=== PATIENT | male | born 1950 | race Caucasian/White ===

== ENCOUNTER → 2023-09-02 16:40 | Outpatient (REF) | payer MEDICARE, SELFPAY ==
[2023-09-02 20:39] LABS: Urine Albumin 3+ (Neg - Trace); Urine Bilirubin 1+ (Negative); Urine Character Very Cloudy (Clear); Urine Color Red; Urine Glucose Negative (Negative); Urine Ketone Trace (Negative); Urine Leukocyte 1+ (Negative); Urine Nitrite Positive (Negative); Urine Occult Blood 4+ (Negative); Urine Urobilinogen 1+ (Neg - 1+); Urine pH 6.5 (5.0-9.0)
[2023-09-02 20:46] LABS: Urine Squamous Cell 0-2 /LPF (Few)
[2023-09-02 20:47] LABS: Urine Red Blood Cell >100 /HPF (0-2); Urine Red Cell Cast >15 /LPF
== END ==
LOC: REG 16:40
PROVIDERS: ATTENDING PHYSICIAN Surgery; FAMILY PHYSICIAN Family Medicine
DX: N39.0 Urinary tract infection, site not specified (principal); N20.0 Calculus of kidney
CPT/HCPCS: 74018; 81003; 81015; 87086

== ENCOUNTER 2023-12-31 23:12 | Emergency (ER) | payer MEDICARE, SELFPAY ==
[2023-12-31 23:16] VITALS: BP 148/83
[2023-12-31 23:18] VITALS: BP 148/83
[2024-01-01 00:29] LABS: % Basophils 0.7 % (0-2); % Eosinophils 1.2 % (0-6); % Immature Granulocytes 2.7 % (0-0.5); % Lymphocytes 15.9 % (20.5-51.1); % Monocytes 8.1 % (1.7-9.3); % Neutrophils 71.4 % (42.2-75.2); Absolute Basophils 0.1 10^3/uL (0-0.2); Absolute Eosinophils 0.1 10^3/uL (0-0.7); Absolute Immature Granulocytes 0.2 10^3/uL (0-0.05); Absolute Lymphocytes 1.3 10^3/uL (1.2-3.4); Absolute Monocytes 0.7 10^3/uL (0.1-0.6); Hematocrit 47.9 % (39.0-52.0); Hemoglobin 15.5 g/dL (13.0-18.0); Mean Corp Hgb Conc. 32.4 g/dL (33.0-37.0); Mean Corpuscular Hgb 31.3 pg (27.0-31.0); Mean Corpuscular Volume 96.8 fL (80.0-94.0); Mean Platelet Volume 10.7 fL (7.4-10.4); Nucleated Red Blood Cells % 0 % (-); Platelet Count 184 10^3/uL (130-400); Red Blood Cell Count 4.95 10^6/uL (4.70-6.10); Red Cell Dist. Width 14.5 % (11.5-14.5); White Blood Cell Count 8.4 10^3/uL (4.8-10.8)
[2024-01-01 00:37] LABS: ALT (SGPT) 18 U/L (0-50); AST (SGOT) 33 U/L (17-59); Albumin 4.1 g/dl (3.5-5.0); Alkaline Phosphatase 78 U/L (38-126); Blood Urea Nitrogen 19 mg/dl (9-20); Calcium 9.3 mg/dl (8.4-10.2); Carbon Dioxide 29 mmol/L (22-30); Chloride 102 mmol/L (98-107); Estimated Creatinine Clearance 100 ml/min; Glucose 101 mg/dl (70-99); Potassium 4.2 mmol/L (3.5-5.1); Sodium 140 mmol/L (135-145); Total Protein 7.3 g/dl (6.3-8.2); eGFR > 60.00
--- NOTE | 2024-01-01 00:58 | ED.GENMED ---
History of Present Illness
General
Chief Complaint: Fall
Source: patient and spouse
Exam Limitations: none
Time Seen by Provider: 01/01/24 00:19
Travel History
Have you had any contact with someone who has COVID-19?: No
Do you have any symptoms of coronavirus? Fever > 100 degrees, chills, cough, shortness of breath, sore throat, loss of taste or smell, muscle aches, or headache?: No
History of Present Illness
History of Present Illness:
This is a 73 year old male that comes in by ambulance with c/o fall. states that he got up form the sofa and was going around the coffee table. States that there are children's chairs at the end of the table and he must have caught his foot on
one of the chairs. States that he was sitting on the floor when she got there. States that he was unable to get up. States that he hit the left sided of his neck and head and also his left lower ribs. States that his 5th finger is also sore but
patient able to move the finger. Denies any LOC. Denies any fever, chills, chest pain, SOB, abd pain, nausea, vomiting, diarrhea, headache, dizziness, urinary burning.
Past History
Past History
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 ),
CHF, CVA (Expressive aphasia), GERD, HTN, Hypothyroidism, Other ( Petty's esophagus , back and neck pain chronic, DVT, renal calculus, ), Other (Vasovagal syncope, DVT, osteoarthritis with chronic pain syndrome/narcotic dependent, BPH) and Other
(Patient Denies gastric erosion and GI bleeding)
ED Past Surgical History: Cardiac (AV sequential pacemaker after ablation for atrial fibrillation ), Orthopedic and Other (Cataracts, Deviated septum, )
Social History
Tobacco: Non-smoker
Alcohol: None
Drug: None
Personal:
Living: with family
Employment: Retired
Family History
Family History: CAD; Negative Diabetes
Review of Systems
Review of Systems
All Other Systems: ROS reviewed and negative except as documented in HPI and ROS
Constitutional: Reports no symptoms; Denies fever or chills
EENT: Reports no symptoms
Respiratory: Reports no symptoms; Denies cough or trouble breathing
Cardiac: Reports no symptoms; Denies chest pain
ABD/GI: Reports no symptoms; Denies abdominal pain, nausea, vomiting or diarrhea
: Reports no symptoms; Denies dysuria, frequency or urgency
Musculoskeletal: Reports neck pain and other (Left sided rib pain)
Skin: Reports no symptoms
Neurological: Reports no symptoms; Denies dizzy or headache
Psychiatric: Reports no symptoms
Phy Exam
General Physical Exam
General Presentation: no apparent distress
General age: appears stated age
General Skin: warm and dry
General Habitus: elderly
General Mental: alert
General Hydration: appears well hydrated
ENT Exam
ENT Exam: TM's normal, pharynx normal and neck supple
Eye Exam
Eye Exam: EOMI
Cardiovascular Exam
Cardiovascular Exam: pacemaker
Pulmonary Exam
Pulmonary Exam: lungs clear, no respiratory distress, no rales, chest non tender, no crackles, no rhonchi, no wheezing and no cough
Gastrointestinal Exam
Gastrointestinal Exam: normal bowel sounds, non tender, soft, no organomegaly, no pulsatile mass and non distended
Musculoskeletal Exam
Musculoskeletal Exam: full ROM and edema (Chronic lower leg edema +1 pitting, Negative for cervical neck tenderness or spinal tenderness with palpation. )
Skin Exam
Skin Exam: normal color, no rash, no petechia and other (Contusion of the left fifth finger)
Psychiatric Exam
Psychiatric Exam: normal mood/affect
Course
Orders/Labs/Results
Orders:
Orders
01/01/24 00:09
CMP [Comprehensive Metabolic Panel] Urgent
Complete Blood Count/With Diff Urgent
01/01/24 00:46
CT Cervical Spine W/o Iv Contr Urgent
Comment:
Reason For Exam: Fall, left sided neck pain
CT Head W/o Iv Contrast Urgent
Comment:
Reason For Exam: fall, On Blood thinners hitting head
01/01/24 00:47
Diazepam [Valium] 2 mg PO NOW STA
Ketorolac [Toradol] 30 mg IV NOW STA
01/01/24 00:57
Prothrombin Time Urgent
01/01/24 01:00
Ribs, Left 3 View W/PA Chest CR [CR Ribs-left 3 Vw W/pa Chest] Urgent
Comment:
Reason For Exam: Fall, left sided rib pain
Abnormal Lab Results
01/01/24 01/01/24
00:09 00:57
MCV 96.8 H fL
(80.0-94.0)
MCH 31.3 H pg
(27.0-31.0)
MCHC 32.4 L g/dL
(33.0-37.0)
MPV 10.7 H fL
(7.4-10.4)
Abs Immat Gran (auto) 0.2 H 10^3/uL
(0-0.05)
Absolute Monos (auto) 0.7 H 10^3/uL
(0.1-0.6)
Immature Gran % 2.7 H %
(0-0.5)
Lymphocytes % 15.9 L %
(20.5-51.1)
PT 36.1 H Sec
(11.4-14.6)
Glucose 101 H mg/dl
(70-99)
01/01/24 00:09
01/01/24 00:09
Anemia, PT 36.1 with INR 3.55, glucose nonfasting
Vital Signs
Initial and Last Documented VS:
Initial Vital Signs
BP
148/83
12/31/23 23:16
Last Documented Vital Signs
Temp Pulse Resp BP Pulse Ox
98.3 F 80 19 132/85 98
12/31/23 23:18 01/01/24 00:58 01/01/24 00:58 01/01/24 01:00 01/01/24 00:58
MDM/Problems Addressed
Differential Diagnosis Includes:
Contusion, accidental fall
MDM/Problems Addressed:
This is a 73 year old male that tripped on a child's chair as his foot got caught. State that he fell hitting the left sided of his head and neck. States that he also hit the left rib area.
Will get CT of head and neck and X-ray or Ribs.
Back into see patient. Explained that the CT of the head and neck is negative for any acute process. Chest with ribs appear to be negative for any fracture but this is very heart sometimes to see on the X-ray. Even if there would be a fracture it is
still treated the same. Encouraged patient to take deep breaths. Follow up with the family doctor as needed. Tylenol for any pain. Explained to patient that his INR is to high. Patient checked his INR at home so encouraged patient to check tomorrow
as he may need to hold his Coumadin so his level can come down into the 2-3 range as it should be less then 3.
Chronic conditions affecting care:
NA
Acute Exacerbation and/or Progression of Chronic Illness:
NA
*Radiology
Radiology exam reviewed: preliminary read by ED provider (Chest/ribs- No obvious rib fracture, negtive for Pneumothorax. ), radiology read reviewed (CT head and cervical spine night hawk- Head- no acue hemorrhage, herniation, or hydrocephalus. Left
MCA territory encephalomalacia. No calvarial fracture. The Visualized paranasal sinuses and mastoid air cells are clear. Cervical spine- No acute fracture or traumatic malalignment. No significant ) and all reviewed NAD by ED Provider (CT
cont=prevertebral edema. Multilevel degenerative changes of the cervical spine. If there are persistent neurologic symptoms, consider MRI for further characterization. )
*Pulse Oximetry
Patient hypoxic: no
*EKG
Interpreted by ED Provider?: NA
Rate: EKG- N/A
*Dietitian Chief Interpretation
Rate: normal
Heart Rate: 82
Rhythm: ventricular paced
*Critical Care Note
Total Time (30-74mins, 75-104mins- exclusive of procedures): Not Applicable
ED Attending Note
-
Portions of this chart may have been created with voice recognition software.� Occasional wrong word or��sound alike� substitutions may have occurred due to the inherent limitations of voice recognition software.
Discharge Plan
Departure
Patient Disposition: Home (Routine Discharge)
Date of Disposition: 01/01/24
Time of Disposition: 02:11
Patient with high blood pressure during this ER visit?: Yes
Condition: Good
Covid-19: Not Applicable
Discharge Problem:
Accidental fall, Neck pain, Contusion of rib on left side
Instructions: Contusion (DC), Preventing falls in adults, Neck Pain ED, BLOOD PRESSURE
Prescriptions:
No Action
warfarin 2.5 mg Tablet
2.5 mg PO QPM
amlodipine 2.5 mg Tablet
2.5 mg PO DAILY@1400
furosemide 20 mg Tablet
20 mg PO DAILYPRN PRN (Reason: leg/ankle swelling)
cholecalciferol (vitamin D3) [Vitamin D3] 25 mcg (1,000 unit) Capsule
25 mcg PO DAILY
oxycodone 5 MG tablet
10 mg PO Q5HPRN PRN (Reason: Moderate or severe pain)
acetaminophen [Acetaminophen Extra Strength] 500 mg Tablet
1,000 mg PO Q6HPRN PRN (Reason: pain)
metoprolol succinate 50 mg Tablet Extended Release 24 Hr
50 mg PO BID
polyethylene glycol 3350 [Miralax] 17 gram/dose Powder
4 g PO DAILY PRN (Reason: constipation)
docusate calcium 50 mg Capsule
50 mg PO DAILY PRN (Reason: constipation)
levothyroxine 150 MCG tablet
150 mcg PO DAILY@0700 Qty: 30 0RF
fluticasone propionate 1 SPRAY spray,suspension
1 spray intranasal DAILY Qty: 1 0RF
cyanocobalamin (vitamin B-12) 1,000 MCG tablet
1,000 mcg PO DAILY Qty: 30 0RF
Referrals:
Edis Mays MD [Family Provider] - Call in 1-3 days for appt
Activity Restrictions/Additional Instructions:
As discussed, your CT of the head and neck is negative for any acute process. There is degenerative changes in the neck. Your blood work shows that your INR is elevated to 3.55. Please check your INR tomorrow and if it remans above 3, please hold
your Coumadin for one day. You may use Ice to any area that is sore for the next 24 hours. After this you can use heat or ice which ever makes you feel better. Tylenol 1000mg every 6 hours or any pain. No obvious rib fracures noted. Please remember
to take deep breaths to open up the lower lung packer. Follow up with the family doctor as needed. IF YOU HAVE ANY OTHER CONCERNS PLEASE RETURN TO THE EMERGENCY ROOM
Interventions
Interventions:
*Risk Screen - Suicide Last Done: 12/31/23 23:23
*General Assessment Last Done: 12/31/23 23:23
*Neglect/Abuse Screening Last Done: 12/31/23 23:23
*ED COVID-19 Vaccine History Last Done: 12/31/23 23:23
ED-Musculoskeletal Assessment Last Done: 12/31/23 23:27
ED- Neurological Assessment Last Done: 12/31/23 23:27
ED-Skin Assessment Last Done: 12/31/23 23:27
Discharge Date and Time
Print Language: MACEDONIAN
[2024-01-01 01:00] VITALS: BP 132/85
[2024-01-01] MEDS: TORADOL 30 MG IV (01:00)
[2024-01-01 01:19] LABS: INR 3.55; PT 36.1 Sec (11.4-14.6)
[2024-01-01 02:00] VITALS: BP 121/74
== END 2024-01-01 02:41 | disposition home or self-care (01) ==
LOC: EMR 23:12
PROVIDERS: Clinical Nurse Specialist Family Health; Emergency Medicine; EMERGENCY PHYSICIAN Student in an Organized Health Care Education/Training Program; FAMILY PHYSICIAN Family Medicine
DX: S60.052A Contusion of left little finger without damage to nail, initial encounter (principal); W19.XXXA Unspecified fall, initial encounter; I48.91 Unspecified atrial fibrillation; J45.909 Unspecified asthma, uncomplicated; I25.10 Atherosclerotic heart disease of native coronary artery without angina pectoris; I11.0 Hypertensive heart disease with heart failure; I50.9 Heart failure, unspecified; K21.9 Gastro-esophageal reflux disease without esophagitis; K22.70 Barrett's esophagus without dysplasia; N40.0 Benign prostatic hyperplasia without lower urinary tract symptoms; M54.2 Cervicalgia
CPT/HCPCS: 99284; 96374; 70450; 71101; 72125; 80053; 85025; 85610

== ENCOUNTER → 2024-01-27 09:43 | Outpatient (REF) | payer MEDICARE, SELFPAY | LOC: HWRAD 09:43 | PROVIDERS: ATTENDING PHYSICIAN Family Medicine | DX: I71.40 Abdominal aortic aneurysm, without rupture, unspecified (principal) | CPT/HCPCS: 74174; Q9967 ==

== ENCOUNTER → 2024-03-03 10:35 | Outpatient (REF) | payer MEDICARE, SELFPAY | LOC: RAD 10:35 | PROVIDERS: ATTENDING PHYSICIAN Surgery Vascular Surgery; FAMILY PHYSICIAN Family Medicine | DX: R29.898 Other symptoms and signs involving the musculoskeletal system (principal) | CPT/HCPCS: 93922; 93925 ==

== ENCOUNTER → 2024-08-22 06:21 | Outpatient (REF) | payer MEDICARE, SELFPAY | LOC: RAD 06:21 | PROVIDERS: ATTENDING PHYSICIAN Surgery Vascular Surgery; FAMILY PHYSICIAN Family Medicine | DX: I71.43 Infrarenal abdominal aortic aneurysm, without rupture (principal) | CPT/HCPCS: 76770 ==

== ENCOUNTER → 2024-10-12 11:28 | Outpatient (REF) | payer MEDICARE, SELFPAY ==
[2024-10-12 14:00] LABS: Body Fluid Mononuclear 12.6 %; Body Fluid Polymorphonuclear 87.4 %; Body Fluid WBC 11655 /CUMM
[2024-10-12 14:09] LABS: Body Fluid Second Tech AMA
== END ==
LOC: REG 11:28
PROVIDERS: ATTENDING PHYSICIAN Specialist; FAMILY PHYSICIAN Family Medicine
DX: M25.462 Effusion, left knee (principal)
CPT/HCPCS: 87015; 87070; 87205; 89051; 89060

== ENCOUNTER → 2024-11-01 12:59 | Outpatient (REF) | payer MEDICARE, SELFPAY | LOC: HWRAD 12:59 | PROVIDERS: ATTENDING PHYSICIAN Family Medicine | DX: M17.10 Unilateral primary osteoarthritis, unspecified knee (principal) | CPT/HCPCS: 73564 ==

== ENCOUNTER → 2024-11-04 10:29 | Outpatient (REF) | payer MEDICARE, SELFPAY ==
[2024-11-04 12:27] LABS: INR 1.98; PT 22.6 Sec (11.4-14.6)
== END ==
LOC: HWLAB 10:29
PROVIDERS: ATTENDING PHYSICIAN Internal Medicine Cardiovascular Disease; FAMILY PHYSICIAN Family Medicine
DX: I48.0 Paroxysmal atrial fibrillation (principal); Z79.01 Long term (current) use of anticoagulants
CPT/HCPCS: 36415; 85610

== ENCOUNTER → 2024-11-07 08:29 | Outpatient (REF) | payer MEDICARE, SELFPAY ==
[2024-11-07 12:50] LABS: INR 3.12
== END ==
LOC: HWLAB 08:29
PROVIDERS: ATTENDING PHYSICIAN Internal Medicine Cardiovascular Disease; FAMILY PHYSICIAN Family Medicine
DX: I48.0 Paroxysmal atrial fibrillation (principal); Z79.01 Long term (current) use of anticoagulants
CPT/HCPCS: 36415; 85610

== ENCOUNTER 2024-12-01 07:34 | Outpatient (RCR) | payer MEDICARE, SELFPAY | END 2024-12-01 23:59 | disposition home or self-care (01) | LOC: RPT 07:34 | PROVIDERS: ATTENDING PHYSICIAN Internal Medicine Cardiovascular Disease; FAMILY PHYSICIAN Family Medicine | DX: I89.0 Lymphedema, not elsewhere classified (principal); Z73.6 Limitation of activities due to disability; R26.2 Difficulty in walking, not elsewhere classified; R26.89 Other abnormalities of gait and mobility | CPT/HCPCS: 97163; 97530; 97760; 97763 ==

== ENCOUNTER → 2024-12-30 10:05 | Outpatient (REF) | payer MEDICARE, SELFPAY | LOC: HWRCS 10:05 | PROVIDERS: ATTENDING PHYSICIAN Nurse Practitioner; FAMILY PHYSICIAN Family Medicine | DX: I10 Essential (primary) hypertension (principal); I50.32 Chronic diastolic (congestive) heart failure | CPT/HCPCS: 93306 ==

== ENCOUNTER → 2025-01-27 06:48 | Outpatient (REF) | payer MEDICARE, SELFPAY | LOC: RAD 06:48 | PROVIDERS: ATTENDING PHYSICIAN Family Medicine | DX: I71.40 Abdominal aortic aneurysm, without rupture, unspecified (principal) | CPT/HCPCS: 74174; Q9967 ==

== ENCOUNTER 2025-03-23 08:11 | Emergency (ER) | payer MEDICARE, SELFPAY ==
[2025-03-23] VITALS (10 sets, daily range): BP systolic 137–152; BP diastolic 84–98; BMI 27.7
--- NOTE | 2025-03-23 08:40 | ED.CVA ---
History of Present Illness
<Ruben Burgos PA-C - Last Filed: 03/24/25 19:52>
General
Chief Complaint: CVA/TIA Symptoms
Source: patient
Exam Limitations: none
Time Seen by Provider: 03/23/25 08:27
Onset of Stroke Symptoms
Onset of symptoms known: No
Time pt last seen normal is known: No
History of Present Illness
History of Present Illness:
74-year-old male with history of A-fib, has pacemaker on Coumadin also with history of stroke presents complaining of onset of left arm dysfunction starting today at 745. He was taking a shower and he was having difficulty coordinating motion of
his hand. He denies any significant pain in his chest head or arm. He denies fever or shortness of breath. No speech disturbance per the family. He is chronically hard of hearing. No other complaints at this
Past History
<Ruben Burgos PA-C - Last Filed: 03/24/25 19:52>
Past History
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 ),
CHF, CVA (Expressive aphasia), GERD, HTN, Hypothyroidism, Other ( Petty's esophagus , back and neck pain chronic, DVT, renal calculus, ), Other (Vasovagal syncope, DVT, osteoarthritis with chronic pain syndrome/narcotic dependent, BPH) and Other
(Patient Denies gastric erosion and GI bleeding)
ED Past Surgical History: Cardiac (AV sequential pacemaker after ablation for atrial fibrillation ), Orthopedic and Other (Cataracts, Deviated septum, )
Social History
Tobacco: Non-smoker
Alcohol: None
Drug: None
Personal:
Living: with family
Employment: Retired
Family History
Family History: CAD; Negative Diabetes
Phy Exam
<Ruben Burgos PA-C - Last Filed: 03/24/25 19:52>
Physical Exam
Physical Exam:
General: Well-appearing male no acute respiratory distress
HEENT: Normal cephalic face is symmetric
Heart: Regular rate and rhythm
Lungs: Clear no wheeze
Neurologic exam: Alert and oriented x 3 no dysarthria or aphasia. Subtle ataxia with the left arm with [id number] otherwise good and sensation and strength to the upper and lower extremities. No drift to the lower extremities. No drift to the
left upper extremity
Extremities: No cyanosis
Skin is warm no rash
Course
<Ruben Burgos PA-C - Last Filed: 03/24/25 19:52>
Orders/Labs/Results
Orders:
Orders
03/23/25 08:40
CT Head W/o Iv Contrast Urgent
Comment:
Reason For Exam: left arm dysfunction
Interrogate Pacemaker- Treatment ONCE
03/23/25 08:45
Electrocardiogram (*1) Urgent
Reason for Study: TIA/Stroke
EKG- Treatment ONCE
03/23/25 08:51
Complete Blood Count/With Diff Urgent
Comprehensive Metabolic Panel Urgent
Prothrombin Time Urgent
03/23/25 Lunch
Regular
At Your Request: Full Participation
03/23/25 13:00
CARDIOLOGY CONSULT Urgent
Consulting Provider: Mateo Simon
Was physician already notified: Yes
03/23/25 14:51
Simethicone [Mylicon] 80 mg PO NOW STA
03/23/25 15:13
Acetaminophen [Tylenol] 650 mg PO NOW STA
Abnormal Lab Results
03/23/25
08:51
Abs Immat Gran (auto) 0.1 H 10^3/uL
(0-0.05)
Absolute Lymphs (auto) 0.8 L 10^3/uL
(1.2-3.4)
Immature Gran % 0.8 H %
(0-0.5)
Neutrophils % 77.8 H %
(42.2-75.2)
Lymphocytes % 11.6 L %
(20.5-51.1)
PT 32.3 H Sec
(11.4-14.6)
Glucose 102 H mg/dl
(70-99)
03/23/25 08:51
03/23/25 08:51
Vital Signs
Initial and Last Documented VS:
Initial Vital Signs
Temp Pulse Resp BP Pulse Ox
98.9 F 83 16 145/89 94
03/23/25 08:14 03/23/25 08:14 03/23/25 08:14 03/23/25 08:14 03/23/25 08:14
Last Documented Vital Signs
Temp Pulse Resp BP Pulse Ox
98.9 F 80 16 152/84 99
03/23/25 08:14 03/23/25 17:25 03/23/25 17:25 03/23/25 17:25 03/23/25 17:25
<Parag Alan, DO - Last Filed: 03/23/25 10:14>
Orders/Labs/Results
Orders:
Orders
03/23/25 08:40
CT Head W/o Iv Contrast Urgent
Comment:
Reason For Exam: left arm dysfunction
Interrogate Pacemaker- Treatment ONCE
03/23/25 08:45
Electrocardiogram (*1) Urgent
Reason for Study: TIA/Stroke
EKG- Treatment ONCE
03/23/25 08:51
Complete Blood Count/With Diff Urgent
Comprehensive Metabolic Panel Urgent
Prothrombin Time Urgent
03/23/25 Lunch
Regular
At Your Request: Full Participation
03/23/25 13:00
CARDIOLOGY CONSULT Urgent
Consulting Provider: Mateo Simon
Was physician already notified: Yes
03/23/25 14:51
Simethicone [Mylicon] 80 mg PO NOW STA
03/23/25 15:13
Acetaminophen [Tylenol] 650 mg PO NOW STA
Abnormal Lab Results
03/23/25
08:51
Abs Immat Gran (auto) 0.1 H 10^3/uL
(0-0.05)
Absolute Lymphs (auto) 0.8 L 10^3/uL
(1.2-3.4)
Immature Gran % 0.8 H %
(0-0.5)
Neutrophils % 77.8 H %
(42.2-75.2)
Lymphocytes % 11.6 L %
(20.5-51.1)
PT 32.3 H Sec
(11.4-14.6)
Glucose 102 H mg/dl
(70-99)
03/23/25 08:51
03/23/25 08:51
Vital Signs
Initial and Last Documented VS:
Initial Vital Signs
Temp Pulse Resp BP Pulse Ox
98.9 F 83 16 145/89 94
03/23/25 08:14 03/23/25 08:14 03/23/25 08:14 03/23/25 08:14 03/23/25 08:14
Last Documented Vital Signs
Temp Pulse Resp BP Pulse Ox
98.9 F 80 16 152/84 99
03/23/25 08:14 03/23/25 17:25 03/23/25 17:25 03/23/25 17:25 03/23/25 17:25
Michaellt;Ruben Burgos PA-C - Last Filed: 03/24/25 19:52>
MDM/Problems Addressed
Differential Diagnosis Includes:
Left arm dysfunction onset 1 hour prior to my exam. Question TIA versus stroke versus radiculopathy versus tremor
Patient has a pacemaker, will interrogate. INR pending. Pacemaker apparently is not MRI compatible per the family. Order CT of the head
<Ruben Burgos PA-C - Last Filed: 03/24/25 19:52>
*Pulse Oximetry
SaO2: 96
Oxygen Mode of Delivery: Room air
Patient hypoxic: no
*Critical Care Note
Total Time (30-74mins, 75-104mins- exclusive of procedures): Not Applicable
<Ruben Burgos PA-C - Last Filed: 03/24/25 19:52>
Update Note
Update Note:
EKG shows ventricular paced rhythm with a rate of 85. Received message from radiology regarding patient's plain CAT scan which demonstrates bilateral subdural collections with an acute component noted on the right side. This may explain the
patient's left arm dysfunction. Discussed with emergency room attending as well as neurosurgery from [facility]. Relayed the information to the patient and family
Neurosurgery recommended reversing Coumadin and transfer. Initially patient quite resistant to transfer and reversing Coumadin as he has had a stroke after being off of the Coumadin for couple days in the past. Discussed with cardiology who saw
patient. After multiple [id number] discussions, patient is okay with transfer. We will not reverse the Coumadin at this time until evaluation is performed at [facility].
Left arm dysfunction has improved and feels back to normal per patient
ED Attending Note
<Ruben Burgos PA-C - Last Filed: 03/24/25 19:52>
-
Portions of this chart may have been created with voice recognition software.� Occasional wrong word or��sound alike� substitutions may have occurred due to the inherent limitations of voice recognition software.
<Parag Alan DO - Last Filed: 03/23/25 10:14>
ED Attending Note
Patient seen and examined by attending physician: Yes
I performed the substantive portion of visit, reviewed & personally made and approve the management plan that is documented in note by myself or FUNMI.: Yes
ED Attending Note:
I have seen and evaluated the patient with a [id number] encounter. I have spoken to the advance practicer provider and involved in the medical history, the physical exam, medical decision making.
Evaluation and management service: agree unless noted differently below.
Results interpretation: agree unless noted differently below.
Focused HPI: 74-year-old male presenting for evaluation of left arm weakness. Patient is currently on Coumadin for prior strokes
Physical exam: Sitting bed comfortably. No acute distress
Medical Decision Making:
10 AM I became involved in the patient's care when the CT showed concerns for bilateral subdural collections. Unfortunately, there does appear to be a somewhat acute subdural aspect to the area. At this point, patient is declining any reversal of
his Coumadin since he had developed a stroke in the past. He does understand that this could lead to worsening bleeding and irreversible damage. is also at bedside and understands the concerns as well. Neurosurgery involved and they
initially suggested reversing the Coumadin but wanted an MRI of the brain but patient does not believe it is MRI compatible. Will have cardiology weigh in.
Discharge Plan
Departure
Patient Disposition: [facility]
Date of Disposition: 03/23/25
Time of Disposition: 13:41
Patient with high blood pressure during this ER visit?: No
Discharge Problem:
Subdural hemorrhage
Prescriptions:
No Action
warfarin 2.5 mg Tablet
2.5 mg PO QPM
Patient Comments:
dose varies. currenttly taking 1.75 mg
furosemide 20 mg Tablet
20 mg PO Q48H
cholecalciferol (vitamin D3) [Vitamin D3] 25 mcg (1,000 unit) Capsule
25 mcg PO DAILY
oxycodone 5 MG tablet
10 mg PO Q5HPRN PRN (Reason: Moderate or severe pain)
acetaminophen [Acetaminophen Extra Strength] 500 mg Tablet
1,000 mg PO Q6HPRN PRN (Reason: pain)
metoprolol succinate 50 mg Tablet Extended Release 24 Hr
50 mg PO BID
polyethylene glycol 3350 [Miralax] 17 gram/dose Powder
4 g PO DAILY PRN (Reason: constipation)
docusate calcium 50 mg Capsule
50 mg PO DAILY PRN (Reason: constipation)
morphine 30 mg Capsule
30 mg PO BID
levothyroxine 150 MCG tablet
150 mcg PO DAILY@0700 Qty: 30 0RF
fluticasone propionate 1 SPRAY spray,suspension
1 spray intranasal DAILY Qty: 1 0RF
cyanocobalamin (vitamin B-12) 1,000 MCG tablet
1,000 mcg PO DAILY Qty: 30 0RF
Referrals:
Edis Mays MD [Family Provider, [facility]]
Hospital Transfer
Other hospital: [place]
I certify that the patient requires transfer: Yes
Discussed case with accepting physician: Yes
Reason for transfer: higher level of care and specialties available
Interventions
Interventions:
*Risk Screen - Suicide Last Done: 03/23/25 08:14
*General Assessment Last Done: 03/23/25 08:32
*Neglect/Abuse Screening Last Done: 03/23/25 08:14
*ED- Fall Risk Assessment Last Done: 03/23/25 08:32
*ED COVID-19 Vaccine History Last Done: 03/23/25 08:32
*Nursing Disposition Last Done: 03/23/25 17:34
ED- Pulmonary Assessment Last Done: 03/23/25 08:35
ED- Neurological Assessment Last Done: 03/23/25 15:00
ED- Cardiac Assessment Last Done: 03/23/25 08:34
ED Swallowing Screen Last Done: 03/23/25 11:42
Discharge Date and Time
Discharge Date/Time: 03/23/25 16:40
Print Language: BULGARIAN
[2025-03-23 09:00] LABS: Hematocrit 45.6 % (39.0-52.0); Hemoglobin 15.1 g/dL (13.0-18.0); Mean Corp Hgb Conc. 33.1 g/dL (33.0-37.0); Mean Corpuscular Volume 91.8 fL (80.0-94.0); Nucleated Red Blood Cells % 0 % (-); Platelet Count 182 10^3/uL (130-400); Red Cell Dist. Width 14.5 % (11.5-14.5)
[2025-03-23 09:10] LABS: INR 3.10; PT 32.3 Sec (11.4-14.6)
[2025-03-23 09:22] LABS: ALT (SGPT) 12 U/L (0-50); AST (SGOT) 18 U/L (17-59); Albumin 3.7 g/dl (3.5-5.0); Alkaline Phosphatase 82 U/L (38-126); Blood Urea Nitrogen 11 mg/dl (9-20); Calcium 9.1 mg/dl (8.4-10.2); Carbon Dioxide 28 mmol/L (22-30); Chloride 106 mmol/L (98-107); Estimated Creatinine Clearance 99 ml/min; Glucose 102 mg/dl (70-99); Potassium 3.6 mmol/L (3.5-5.1); Sodium 140 mmol/L (135-145); Total Protein 6.7 g/dl (6.3-8.2); eGFR > 60.00
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
[2025-03-23] MEDS: TYLENOL 650 MG PO (15:17)
[2025-03-23] MEDS: MYLICON 80 MG PO (15:18)
== END 2025-03-23 16:40 | disposition short-term general hospital (02) ==
LOC: EMR 08:11
PROVIDERS: Physician Assistant; CONSULT PHYSICIAN Internal Medicine Cardiovascular Disease; EMERGENCY PHYSICIAN Student in an Organized Health Care Education/Training Program; FAMILY PHYSICIAN Family Medicine
DX: I62.00 Nontraumatic subdural hemorrhage, unspecified (principal); I11.0 Hypertensive heart disease with heart failure; I50.32 Chronic diastolic (congestive) heart failure; E03.9 Hypothyroidism, unspecified; F11.20 Opioid dependence, uncomplicated; G89.4 Chronic pain syndrome; I25.10 Atherosclerotic heart disease of native coronary artery without angina pectoris; I48.21 Permanent atrial fibrillation; J45.909 Unspecified asthma, uncomplicated; Z55.6 Problems related to health literacy; Z79.01 Long term (current) use of anticoagulants; Z79.82 Long term (current) use of aspirin; Z86.73 Personal history of transient ischemic attack (TIA), and cerebral infarction without residual deficits; Z86.718 Personal history of other venous thrombosis and embolism; Z86.79 Personal history of other diseases of the circulatory system
CPT/HCPCS: 99285; 70450; 80053; 85025; 85610; 93005

== ENCOUNTER 2025-04-02 16:20 | Inpatient (IN) | payer MEDICARE, SELFPAY ==
[2025-04-02] VITALS (11 sets, daily range): BP systolic 114–152; BP diastolic 61–99; BMI 28.6; BMI 27.5
--- NOTE | 2025-04-02 08:19 | ED.GENMED ---
History of Present Illness
<Ciro Khan PA-C - Last Filed: 04/02/25 15:08>
General
Chief Complaint: Musculo-Skeletal Complaint
Source: patient, spouse and family
Time Seen by Provider: 04/02/25 08:01
History of Present Illness
History of Present Illness:
74-year-old male with recent past medical history of a subdural hematoma, transferred to [facility] and discharged this past Thursday, permanent A-fib status post pacemaker, CHF, CAD, previous DVT presenting to the emergency department with
family with concern for possible DVT to the right lower extremity after patient started noticing a pulling sensation to the leg late Thursday evening and has continued, family now noting there seems to be some redness to the medial distal thigh with
tenderness to palpation. There was no reported injury to the affected area. Patient had to be removed from his Coumadin due to the intracranial bleed after being on Coumadin for 20 years and as of this time there was no indication patient would be
restarted on the Coumadin. He does not have a Watchman device or IVC filter. He denies any focal weakness or numbness to the extremity. There was no reported fevers. No other concerns at this time.
Past History
<Ciro Khan PA-C - Last Filed: 04/02/25 15:08>
Past History
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 ),
CHF, CVA (Expressive aphasia), GERD, HTN, Hypothyroidism, Other ( Petty's esophagus , back and neck pain chronic, DVT, renal calculus, ), Other (Vasovagal syncope, DVT, osteoarthritis with chronic pain syndrome/narcotic dependent, BPH) and Other
(Patient Denies gastric erosion and GI bleeding)
ED Past Surgical History: Cardiac (AV sequential pacemaker after ablation for atrial fibrillation ), Orthopedic and Other (Cataracts, Deviated septum, )
Social History
Tobacco: Non-smoker
Alcohol: None
Drug: None
Personal:
Living: with family
Employment: Retired
Family History
Family History: CAD; Negative Diabetes
Review of Systems
<Ciro Khan PA-C - Last Filed: 04/02/25 15:08>
Review of Systems
All Other Systems: ROS reviewed and negative except as documented in HPI and ROS
Phy Exam
<Ciro Khan PA-C - Last Filed: 04/02/25 15:08>
Physical Exam
Physical Exam:
GENERAL: Alert , in no apparent distress
HEAD: Normocephalic atraumatic
EYE: conjunctiva clear
NECK: Supple, no significant adenopathy.
ENT: o/p clr, mmm.
CARDIAC: Regular rate and rhythm
LUNGS: Clear breath sounds bilaterally, no acute respiratory distress, no wheezes/rales/rhonchi
NEUROLOGICAL: Alert and oriented
SKIN: Warm and dry, skin intact.
MUSCULOSKELETAL: Venous stasis dermatitis to the bilateral lower extremities with dusky appearance that is baseline to the distal lower legs bilaterally. The right lower extremity medial/distal thigh has a large area of erythema that is hot to the
touch, tender with a suspected palpable cord/induration measuring about 5 to 6 cm. Patient is able to range of motion the extremities out difficulty. Cap refills less than 2 seconds and sensation is grossly intact to light touch.
PSYCH: Normal and appropriate interaction.
Scores
<Ciro Khan PA-C - Last Filed: 04/02/25 15:08>
Heart Failure Risk
Heart Failure Risk Score: Not Applicable
Heart Score for Chest Pain Patients
STEMI patient?: Not applicable
Withdrawal Assessment of Alcohol
Withdrawal Assessment Completed?: Not applicable
Course
<Ciro Khan PA-C - Last Filed: 04/02/25 15:08>
Orders/Labs/Results
Orders:
Orders
04/02/25 08:01
US Periph Venous LOWER Ext RT Urgent
Comment:
Reason For Exam: edema, hx DVT, off coumadin
04/02/25 08:48
Basic Metabolic Panel Urgent
Complete Blood Count/With Diff Urgent
PTT Urgent
Prothrombin Time Urgent
04/02/25 11:22
CT Head W/o Iv Contrast Urgent
Comment:
Reason For Exam: recent subdural, assess for progression
04/02/25 15:00
Heparin 7,400 units IV NOW STA
Heparin 53449 Units/250 ml 25,000 units in 250 ml IV PER PROTOCOL
Weight to be used for heparin protocol in kilograms (kg):: 93
Protocol:: DVT/PE
PTT Goal Range to be used:: PTT 73 to 111 seconds
Order type:: Initial
INITIAL Infusion Dose (UNITS/KG/hr) & then follow protocol:: 18 units/kg/hr
Infusion Dose in UNITS/hr & then follow protocol (UNITS/hr):: 1,700
INFUSION RATE in mL/hr & then follow protocol (mL/hr):: 17
For DVT/PE algorithm, re-bolus for low PTT?: No
PTT less than or equal to 64 seconds:: No Re-bolus. Increase by 400 units/hr (+ 4mL/hr)
PTT 64.1 to 72.9 seconds:: No Re-bolus. Increase by 200 units/hr (+ 2mL/hr)
PTT 73 to 111 seconds:: Target Range. No change in rate.
PTT 111.1 to 130.9 seconds:: Decrease rate by 200 units/hr (- 2 mL/hr)
PTT 131 to 199.9 seconds:: HOLD for 1 hr. Then decrease by 300 units/hr (- 3mL/hr)
PTT greater than or equal to 200 seconds:: HOLD for 2 hrs & Notify Provider. Then decrease by 400 units/hr
(- 4mL/hr)
Lab follow-up:: Each change, PTT q6h until 2 consecutive are therapeutic. Then
PTT daily.
Pharmacy Request to Place See Dose Instructions IV DIRECTED
Pharmacy Request to Place See Dose Instructions PO NOW STA
Discontinue all Active Warfarin orders?: Yes
04/02/25 15:01
PTT Urgent
Comment: Obtain baseline before beginning heparin infusion if not already collected
Nursing to Place Non Medication Order As Directed
Physician Order: PTT 6 hours after initial start of Heparin infusion
Abnormal Lab Results
04/02/25
08:48
RBC 4.65 L 10^6/uL
(4.70-6.10)
Abs Immat Gran (auto) 0.1 H 10^3/uL
(0-0.05)
Absolute Lymphs (auto) 0.9 L 10^3/uL
(1.2-3.4)
Absolute Monos (auto) 0.8 H 10^3/uL
(0.1-0.6)
Immature Gran % 0.8 H %
(0-0.5)
Neutrophils % 76.0 H %
(42.2-75.2)
Lymphocytes % 10.3 L %
(20.5-51.1)
Monocytes % 9.9 H %
(1.7-9.3)
PT 16.7 H Sec
(11.4-14.6)
Carbon Dioxide 35 H mmol/L
(22-30)
Creatinine 0.6 L mg/dL
(0.7-1.3)
Glucose 106 H mg/dl
(70-99)
04/02/25 08:48
04/02/25 08:48
Vital Signs
Initial and Last Documented VS:
Initial Vital Signs
Temp Pulse Resp BP Pulse Ox
98.4 F 81 17 122/84 95
04/02/25 07:50 04/02/25 07:50 04/02/25 07:50 04/02/25 07:50 04/02/25 07:50
Last Documented Vital Signs
Temp Pulse Resp BP Pulse Ox
98.2 F 80 16 115/84 96
04/02/25 14:00 04/02/25 14:00 04/02/25 14:00 04/02/25 14:00 04/02/25 14:00
<Agustin Russell, - Last Filed: 04/02/25 11:23>
Orders/Labs/Results
Orders:
Orders
04/02/25 08:01
US Periph Venous LOWER Ext RT Urgent
Comment:
Reason For Exam: edema, hx DVT, off coumadin
04/02/25 08:48
Basic Metabolic Panel Urgent
Complete Blood Count/With Diff Urgent
PTT Urgent
Prothrombin Time Urgent
04/02/25 11:22
CT Head W/o Iv Contrast Urgent
Comment:
Reason For Exam: recent subdural, assess for progression
04/02/25 15:00
Heparin 7,400 units IV NOW STA
Heparin 84571 Units/250 ml 25,000 units in 250 ml IV PER PROTOCOL
Weight to be used for heparin protocol in kilograms (kg):: 93
Protocol:: DVT/PE
PTT Goal Range to be used:: PTT 73 to 111 seconds
Order type:: Initial
INITIAL Infusion Dose (UNITS/KG/hr) & then follow protocol:: 18 units/kg/hr
Infusion Dose in UNITS/hr & then follow protocol (UNITS/hr):: 1,700
INFUSION RATE in mL/hr & then follow protocol (mL/hr):: 17
For DVT/PE algorithm, re-bolus for low PTT?: No
PTT less than or equal to 64 seconds:: No Re-bolus. Increase by 400 units/hr (+ 4mL/hr)
PTT 64.1 to 72.9 seconds:: No Re-bolus. Increase by 200 units/hr (+ 2mL/hr)
PTT 73 to 111 seconds:: Target Range. No change in rate.
PTT 111.1 to 130.9 seconds:: Decrease rate by 200 units/hr (- 2 mL/hr)
PTT 131 to 199.9 seconds:: HOLD for 1 hr. Then decrease by 300 units/hr (- 3mL/hr)
PTT greater than or equal to 200 seconds:: HOLD for 2 hrs & Notify Provider. Then decrease by 400 units/hr
(- 4mL/hr)
Lab follow-up:: Each change, PTT q6h until 2 consecutive are therapeutic. Then
PTT daily.
Pharmacy Request to Place See Dose Instructions IV DIRECTED
Pharmacy Request to Place See Dose Instructions PO NOW STA
Discontinue all Active Warfarin orders?: Yes
04/02/25 15:01
PTT Urgent
Comment: Obtain baseline before beginning heparin infusion if not already collected
Nursing to Place Non Medication Order As Directed
Physician Order: PTT 6 hours after initial start of Heparin infusion
Abnormal Lab Results
04/02/25
08:48
RBC 4.65 L 10^6/uL
(4.70-6.10)
Abs Immat Gran (auto) 0.1 H 10^3/uL
(0-0.05)
Absolute Lymphs (auto) 0.9 L 10^3/uL
(1.2-3.4)
Absolute Monos (auto) 0.8 H 10^3/uL
(0.1-0.6)
Immature Gran % 0.8 H %
(0-0.5)
Neutrophils % 76.0 H %
(42.2-75.2)
Lymphocytes % 10.3 L %
(20.5-51.1)
Monocytes % 9.9 H %
(1.7-9.3)
PT 16.7 H Sec
(11.4-14.6)
Carbon Dioxide 35 H mmol/L
(22-30)
Creatinine 0.6 L mg/dL
(0.7-1.3)
Glucose 106 H mg/dl
(70-99)
04/02/25 08:48
04/02/25 08:48
Vital Signs
Initial and Last Documented VS:
Initial Vital Signs
Temp Pulse Resp BP Pulse Ox
98.4 F 81 17 122/84 95
04/02/25 07:50 04/02/25 07:50 04/02/25 07:50 04/02/25 07:50 04/02/25 07:50
Last Documented Vital Signs
Temp Pulse Resp BP Pulse Ox
98.2 F 80 16 115/84 96
04/02/25 14:00 04/02/25 14:00 04/02/25 14:00 04/02/25 14:00 04/02/25 14:00
<Ciro Khan PA-C - Last Filed: 04/02/25 15:08>
MDM/Problems Addressed
Differential Diagnosis Includes:
DVT
Superficial phlebitis
Cellulitis
Necrotizing fasciitis
Venous stasis dermatitis
MDM/Problems Addressed:
74-year-old male presenting to the ER for evaluation with family who has concern for possible DVT to the right lower extremity. Patient with complicated past medical history, recently removed from his Coumadin due to intracranial bleeding.
Currently hemodynamically stable. Extremities warm and without sign of arterial compromise. Given past medical history will obtain an ultrasound to rule out DVT/phlebitis. Labs ordered. Disposition pending
Chronic conditions affecting care: CAD, Arrhythmia and Neurological disorder
<Ciro Khan PA-C - Last Filed: 04/02/25 15:08>
*Radiology
Radiology exam reviewed: radiology read reviewed
*Pulse Oximetry
SaO2: 95
Oxygen Mode of Delivery: Room air
Patient hypoxic: no
*Critical Care Note
Total Time (30-74mins, 75-104mins- exclusive of procedures): 65
comment:
Critical care statement: A total of 65 minutes of critical care time was provided for this patient. This includes management of unstable vital signs, evaluation of the patient at bedside, reviewing the patient's pertinent medical records, discussion
with consultants, review of old EKGs and review of pertinent medical records. This time with separate from time utilized to perform the aforementioned documented procedures
Data Reviewed
Review of Other/Old Records Reveals: Labs and Records
Source: patient, records, spouse and family
<Ciro Khan PA-C - Last Filed: 04/02/25 15:08>
Comment
Comment:
Patient's ultrasound shows superficial venous thrombosis of the right superficial femoral junction and greater saphenous vein to the level of the knee. I reviewed these findings with the patient and family. I contacted neurosurgery, Dr. Bautista, to
discuss the case as patient would potentially need anticoagulation but given his recent diagnosis we were unsure as to if this could be reinitiated. As per Dr. Bautista, she was under the impression that the patient's never wanted to stop the
Coumadin and that patient had still been taking the Coumadin so she was surprised to learn that patient was off the Coumadin. She states that regardless of the ultrasound findings today if the patient had a stable CT scan of the head which did not
show any progression of bleeding patient could be reinitiated on his Coumadin. I discussed this as well as the potential risk factors of reinitiating the with the family and they are going to decide if they ultimately wish for Coumadin to be
reintroduced if patient's CT of the head remains stable. If patient ultimately decides that he would like to be reinitiated on Coumadin we would start heparin here with plans to admit to monitored the patient as well as consult with cardiology and
the vascular team as patient will need very close monitoring. Dr. Bautista is okay with this plan
Patient Management
Discussion with other providers: Hospitalist and Ivory Polisher
Escalation/DeEscalation of care consider admission/obs:
Patient's head CT shows stable bilateral subdural hematomas that are unchanged from last. Given this finding and after extensive discussion with consultants as well as patient and family they requested he be restarted on his Coumadin. Because his
INR is now subtherapeutic we will initiate heparin and because with cardiology as well as neurosurgery and vascular while the patient is admitted. I notified all of the above consultants. Hospitalist team accepts for continued evaluation and
treatment.
ED Attending Note
<Ciro Khan PA-C - Last Filed: 04/02/25 15:08>
-
Portions of this chart may have been created with voice recognition software.� Occasional wrong word or��sound alike� substitutions may have occurred due to the inherent limitations of voice recognition software.
<Agustin Russell DO - Last Filed: 04/02/25 11:23>
ED Attending Note
Patient seen and examined by attending physician: Yes
I performed the substantive portion of visit, reviewed & personally made and approve the management plan that is documented in note by myself or FUNMI.: Yes
Discharge Plan
Departure
Patient Disposition: Admit
Date of Disposition: 04/02/25
Time of Disposition: 15:07
Presentation/result/management discussed w/ accepting MD/DO: Hospitalist
Discharge Problem:
Phlebitis of leg, right, Chronic subdural hematoma
Prescriptions:
No Action
warfarin 2.5 mg Tablet
2.5 mg PO QPM
Patient Comments:
dose varies. currenttly taking 1.75 mg
furosemide 20 mg Tablet
20 mg PO Q48H
cholecalciferol (vitamin D3) [Vitamin D3] 25 mcg (1,000 unit) Capsule
25 mcg PO DAILY
oxycodone 5 MG tablet
10 mg PO Q5HPRN PRN (Reason: Moderate or severe pain)
acetaminophen [Acetaminophen Extra Strength] 500 mg Tablet
1,000 mg PO Q6HPRN PRN (Reason: pain)
metoprolol succinate 50 mg Tablet Extended Release 24 Hr
50 mg PO BID
polyethylene glycol 3350 [Miralax] 17 gram/dose Powder
4 g PO DAILY PRN (Reason: constipation)
docusate calcium 50 mg Capsule
50 mg PO DAILY PRN (Reason: constipation)
morphine 30 mg Capsule
30 mg PO BID
levothyroxine 150 MCG tablet
150 mcg PO DAILY@0700 Qty: 30 0RF
fluticasone propionate 1 SPRAY spray,suspension
1 spray intranasal DAILY Qty: 1 0RF
cyanocobalamin (vitamin B-12) 1,000 MCG tablet
1,000 mcg PO DAILY Qty: 30 0RF
Referrals:
Edis Mays MD [Family Provider, Family Practice]
Interventions
Interventions:
*Risk Screen - Suicide Last Done: 04/02/25 07:53
*General Assessment Last Done: 04/02/25 07:53
*Neglect/Abuse Screening Last Done: 04/02/25 07:53
*ED COVID-19 Vaccine History Last Done: 04/02/25 07:53
Discharge Date and Time
Print Language: TAJIK
[2025-04-02 09:15] LABS: Hematocrit 42.9 % (39.0-52.0); Hemoglobin 14.3 g/dL (13.0-18.0); Mean Corp Hgb Conc. 33.3 g/dL (33.0-37.0); Mean Corpuscular Volume 92.3 fL (80.0-94.0); Nucleated Red Blood Cells % 0 % (-); Platelet Count 151 10^3/uL (130-400); Red Cell Dist. Width 14.5 % (11.5-14.5)
[2025-04-02 09:22] LABS: INR 1.32; PT 16.7 Sec (11.4-14.6)
[2025-04-02 09:23] LABS: APTT 33.1 Sec (23.4-35.0)
[2025-04-02 09:25] LABS: Blood Urea Nitrogen 14 mg/dl (9-20); Calcium 8.6 mg/dl (8.4-10.2); Carbon Dioxide 35 mmol/L (22-30); Chloride 100 mmol/L (98-107); Estimated Creatinine Clearance 115 ml/min; Glucose 106 mg/dl (70-99); Potassium 4.5 mmol/L (3.5-5.1); Sodium 138 mmol/L (135-145); eGFR > 60.00
[2025-04-02 15:45] LABS: APTT 31.5 Sec (23.4-35.0)
[2025-04-02] MEDS: HEPARIN 25000 UNITS/250 ML IV (15:52)
--- NOTE | 2025-04-02 16:01 | CON.NS ---
Consultation
-
Date/Time Consultation Performed: 04/02/2025; 16:00
Performing Provider: Lily
Chief Complaint
History of Present Illness
This is a neurosurgical consultation on this 74-year-old gentleman, known to neurosurgery, who presented approximately 10 days prior to [facility] with left-sided shaking, and weakness. Ultimately this was felt to be consistent with seizure
activity. He had a noncontrast head CT, which revealed bilateral subdural hematomas, right greater than left, with right sided acute on chronic subdural collection.
Extensive conversation was held regarding reversal of the Coumadin in the setting of an INR of 3.1. At that time, the patient's and patient refused reversal with Kcentra. Discussions were held at that time while the patient was in the
emergency room with ED physician, cardiology on-call, regarding management options. Ultimately, the patient was transferred to [facility] for close neurological monitoring, in the setting of potential neurological deterioration with
recently diagnosed subdural hematoma.
At [facility], I evaluated the patient. The patient ultimately refused reversal with vitamin K, and Kcentra, and plans for to allow for the INR to slowly come down to correct. and patient wish to continue with Coumadin.
Multiple multidisciplinary discussions were held with the patient's family regarding risks and benefits of continuing on Coumadin in the setting of acute on chronic subdural hematoma versus stroke risk. Ultimately, I had offered management options
which included
1. holding on Coumadin, and restarting in approximately 7 to 10 days, once it was determined that the subdural hematoma was stable, and would not require any surgical intervention. Family felt very uncomfortable with holding on Coumadin, given
that patient had had a stroke in the past when he was off of Coumadin for approximately 3 days.
2. MMA embolization to help prevent progression of this subdural hematoma, especially in the setting of the patient needing to be on chronic/long-term anticoagulation therapy. At the time, during [facility] hospitalization, patient was unsure as to
whether or not he wanted to proceed with this, but appointment was made.
3. Should the subdural hematoma progress, then patient would require reversal, and emergent open cranial procedure to evacuate.
Ultimately, after extensive, lengthy conversations, the patient and wish to be discharged home the day after admission, with plans to stay off of Coumadin.
According to chart review, the patient was indeed seen by endovascular neurosurgery on 03/29/2025, and recommendations were made regarding management of the subdural, 1 of which was MMA embolization. According to chart review, it is noted that the
patient 'elected to proceed with observation.' According to Dr. Jose Vernon's note, plan was to see patient 'back in 1 to 2 weeks to ensure stability of his CAT scan and determine next steps.'.
Patient now presents with pulling sensation in right lower extremity with some erythema in the medial distal thigh with tenderness to palpation.
Patient had right lower extremity ultrasound that showed superficial venous thrombosis of the right superficial femoral junction and greater saphenous vein to the level of the knee.
Patient underwent head CT here, which demonstrates a stable subdural collections.
The patient was also discharged on Keppra 500 mg twice daily.
Patient has active cardiac issues including permanent atrial fibrillation, status post permanent pacemaker on chronic warfarin, and prior embolic left MCA stroke.
Patient seen and examined in the emergency room. , daughter at bedside. Patient did not have any active symptoms. 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
Of note, patient's reports that she stopped his Keppra midweek as she felt that he was getting quite agitated and violent on it. This was discussed during their visit with Dr. Vernon, and she does admit that she got a refill for an additional
two weeks, but did not renew the refill as she felt that he was having significant behavioral issues on it. She reached out to Dr. Salguero' office on Thursday to discuss.
Thus, The patient has been off of Keppra since 03/29/2025.
Review of Systems
-
10 point review of systems including constitutional, ENT, cardiovascular, respiratory, GI, , neurologic, gynecologic, hematologic, was performed, and was negative, except for as stated in HPI.
Medication and Allergies
Home Medications
Home Medications
�Medication �Instructions �Recorded
cyanocobalamin (vitamin B-12) 1,000 mcg PO DAILY #30 tabs 01/06/22
1,000 mcg tablet
levothyroxine 150 mcg tablet 150 mcg PO DAILY@0700 #30 tabs 01/06/22
cholecalciferol (vitamin D3) 25 25 mcg PO DAILY 10/08/22
mcg (1,000 unit) capsule (Vitamin
D3)
furosemide 20 mg tablet 20 mg PO Q48H 10/08/22
metoprolol succinate 50 mg 50 mg PO BID 10/14/22
tablet,extended release 24 hr
docusate sodium 100 mg capsule 300 mg PO DAILY@1200 04/02/25
(Colace)
fluticasone propionate 50 1 spray intranasal DAILYPRN PRN 04/02/25
mcg/actuation nasal allergies
spray,suspension
morphine 15 mg tablet,extended 30 mg PO Q12H 04/02/25
release
oxycodone 10 mg tablet 20 mg PO BID@0530,1730 04/02/25
warfarin 1 mg tablet 1.75 mg PO QPM 04/02/25
Allergies
Allergies
Allergy/AdvReac Type Severity Reaction Status Date / Time
amoxicillin trihydrate (From Allergy PROFUSE Verified 04/02/25 07:52
Augmentin) VOMITING
ketamine Allergy delayed Verified 04/02/25 07:52
arousal
Physical Exam
-
Exam:
Awake, alert, conversant
Pupils are equal reactive
Extraocular movements are full
Face is symmetric
Tongue is midline
Speech is fluent, comprehension is intact, repetition is
Motor: 5/5 strength bilaterally in upper extremities and lower extremities
No pronator drift.
Extensive area of erythema along right medial thigh. Baseline bilateral lower extremity pitting edema
Noncontrast CT scan of the head performed on 04/02/2025 was reviewed. Images were personally viewed and interpreted by me. Report was also reviewed. These were compared with head CT performed on 03/23/2025. There is overall stable appearance of
bilateral extra-axial fluid collections, appearing more hypodense in nature, consistent with largely subdural hygromas. There is some evidence of membranous formation which is noted.
Problems
-
Problem Status Onset Code
Chronic subdural hematoma Acute I62.03
Phlebitis of leg, right Acute I80.3
Assessment / Plan
-
This is a 74-year-old gentleman with multiple medical/cardiac comorbidities, previously on Coumadin, who had presented 10 days prior with left sided/upper extremity ataxia which was short-lived, and resolved spontaneously.
Head CT demonstrated right greater than left subdural collections with small component of acute on chronic subdural hematoma on the right. He was started on Keppra 500 mg twice daily.
He was transferred to [facility], at which time he was monitored closely for 24 hours and had repeat imaging studies that demonstrated no evidence of increased acute hemorrhage.
Multiple, extensive multidisciplinary conversations were held with the patient, the patient's , and patient's daughter by both myself, as well as other members of treating team.
Ultimately, family decided to hold on restarting Coumadin and allow INR to slowly drift down.
Patient's presents now with right lower extremity thrombus. There have been multidisciplinary conversations today via secure text regarding management between the emergency room, vascular surgery, cardiology, hospital medicine.
It has been deemed that the patient would benefit from initiation of therapeutic anticoagulation, for this lower extremity nonocclusive thrombus.
Given that the patient has a stable head CT, with a stable neurological examination, with a new medical condition, requiring therapeutic anticoagulation, I have discussed with the family, that it is reasonable to restart therapeutic anticoagulation,
understanding the risks of progression of the patient's subdural hematoma which could become at some point even life-threatening and requiring emergent surgery. Additionally, patient has also essentially elected to defer the MMA procedure, At the
present time which can help prevent progression of this subdural hematoma in the setting of patient requiring chronic anticoagulation.
Recommend, if the patient requires therapeutic anticoagulation, starting a heparin drip, without bolus. Monitor the patient very closely under at least stepdown/ICU status for close neurological monitoring, and strict systolic blood pressure
control less than 140. Titrate PTT to 60-80 and no higher. Obtain head CT when PTT 60-80 has been achieved to ensure that there is no evidence of new bleed.
Patient has a follow-up appointment with Dr. Vernon scheduled on 04/12. He is instructed to keep this appointment, to revisit MMA embolization, especially now that he has been restarted on therapeutic anticoagulation.He can postpone his outpatient
follow-up CT scan until just prior to his appointment.
With regard to the Keppra, the patient prefers that the patient remain off of Keppra. I have thoroughly discussed with the patient, the patient's daughter, and the patient's risks of potentially having breakthrough or new seizures
especially, in the setting of persistent subdural collections. They expressed understanding of this, and preferred to keep the patient off of antiepileptics.
Will review head CT once PTT is therapeutic.
If the patient has new neurological findings, or neurological changes, please stop heparin ALINE, and obtain stat head CT.
--- NOTE | 2025-04-02 16:14 | HPS.HSE ---
Family Physician
-
Family Physician: Edis Mays
Chief Complaint
-
Right leg pain
History of Present Illness
Patient 74 years old male with complicated past medical history some of which include A-fib, CHF, nonobstructive CAD, CVA, bilateral subdural hematomas, presented to the hospital with right lower extremity pain erythema and swelling. Patient
started having some pulling sensation in his right thigh with some erythema in the medial distal thigh area with significant pain on minimal palpation. Patient has been on chronic anticoagulation and has been discontinued back in March the
third this year and he this time he has been complaining of right medial thigh erythema associated with mild swelling and tenderness that has been progressive getting worse since last Thursday. He denies chest pain or shortness of breath. He denies
fevers or chills. He denies nausea or vomiting. He denies melena, hematochezia, hematemesis, epistaxis, or gum bleeding. In the ER CT scan of the head shows stable appearance of bilateral chronic subdural hematoma and hemoglobin 14, plate count
151,INR 1.32, PTT 33.1. Of note, patient came into the ED 10 days ago with left-sided shakiness and weakness and there was some concerns with seizure activity and had 2 subdural hematomas evaluated at the time and he was transferred to [facility] and at the time the anticoagulation with Coumadin was held after several discussions took place. Patient was placed on Keppra and had some reactions to it and was subsequently discontinued. ER discussed with neurosurgery, cardiology, and
vascular surgery about the need for treatment. He was referred to hospitalist service for further evaluation.
Medical History
Past Medical History
Past Medical History: Reports Other (Permanent A-fib, CHF, nonobstructive CAD, CVA, bilateral subdural hematomas, hypothyroidism, hypertension, chronic pain with narcotic dependence, pacemaker in the past, AAA.)
Past Surgical History: Reports Other (Pacemaker implantation, AV node ablation,)
Social History
Tobacco: Non-smoker
Alcohol: None
Drug: None
Family History
Family History: Not pertinent
Allergies / Home Medications
Allergies reflects when Allergies were last updated in [employer].
Home Medications with original date entered in [employer]
Allergy/Medication List:
Allergies
Allergy/AdvReac Type Severity Reaction Status Date / Time
amoxicillin trihydrate (From Allergy PROFUSE Verified 04/02/25 07:52
Augmentin) VOMITING
ketamine Allergy delayed Verified 04/02/25 07:52
arousal
Home Medications
cyanocobalamin (vitamin B-12) 1,000 mcg tablet 1,000 mcg PO DAILY #30 tabs 01/06/22
levothyroxine 150 mcg tablet 150 mcg PO DAILY@0700 #30 tabs 01/06/22
cholecalciferol (vitamin D3) 25 mcg (1,000 unit) capsule (Vitamin D3) 25 mcg PO DAILY 10/08/22
furosemide 20 mg tablet 20 mg PO Q48H 10/08/22
metoprolol succinate 50 mg tablet,extended release 24 hr 50 mg PO BID 10/14/22
docusate sodium 100 mg capsule (Colace) 300 mg PO DAILY@1200 04/02/25
fluticasone propionate 50 mcg/actuation nasal spray,suspension 1 spray intranasal DAILYPRN PRN allergies 04/02/25
morphine 15 mg tablet,extended release 30 mg PO Q12H 04/02/25
oxycodone 10 mg tablet 20 mg PO BID@0530,1730 04/02/25
warfarin 1 mg tablet 1.75 mg PO QPM 04/02/25
Review of Systems
-
A 12 point ROS was completed and negative except as noted: Yes
Physical Exam
Vital Signs
Vital Signs
Temp Pulse Resp BP Pulse Ox
98.2 F 82 28 115/84 95
04/02/25 14:00 04/02/25 15:30 04/02/25 15:30 04/02/25 14:00 04/02/25 15:30
Physical exam:
General: Acutely ill
HEENT: Normocephalic, Atraumatic and Moist Mucous Membranes
Respiratory: Clear to Auscultation; Negative Wheezes, Rales or Rhonchi
Cardiac: Irregular rate and rhythm and S1/S2
GI: Soft, Nontender and Nondistended. No bruits
Musculoskeletal: No Clubbing, No Cyanosis and No Edema
Skin: Bilateral lower extremity venous stasis changes and edema. Right medial thigh erythema with significant tenderness on minimal palpation.
Neuro: Awake, Alert and Oriented, no neurological deficits
Psych: Calm
Physical Exam
General: Other
Laboratory Results
-
04/02/25 08:48
04/02/25 08:48
Laboratory Results
PT 16.7 Sec (11.4-14.6) H 04/02/25 08:48
INR 1.32 04/02/25 08:48
APTT 31.5 Sec (23.4-35.0) 04/02/25 15:27
Data Reviewed
-
CT Scan: Image Personally Visualized and interpreted
Lab Data: Labs Reviewed by me
Impression/Plan
-
IMPRESSION:
Patient is 74 years old male with multiple comorbidities presented to the hospital right lower extremity pain and erythema and tenderness consistent with a right lower extremity acute thrombosis. Patient with history of subdural hematomas and at
high risk of progression of thrombosis and, on the other hand, high risk of bleeding therefore he will need to be monitored in the hospital and treated accordingly.
PLAN:
Acute symptomatic thrombosis right lower extremity:
Doppler shows superficial thrombosis-->Nonocclusive thrombus formation of the right superficial femoral junction and greater saphenous vein to the level of the knee.
Discussed with hematology and based on symptoms and risks and the clot extending to the junction of the superficial femoral vein, hematology recommends anticoagulation.
Neurosurgery cleared him for anticoagulation
Started on heparin drip in the ED and will continue with heparin drip without boluses with PTT goal of 60-80. He will also need very close blood pressure control and neuro-checks.
Will repeat CT of the head in a.m.
Discussed with neurosurgery today
Discussed with cardiology today
Discussed with family at bedside and will hold oral anticoagulation today while on parenteral anticoagulation but will start tomorrow if he remains stable and images show stability as well.
Chronic subdural hematoma:
Since CT scan of the head
He also has appearance of chronic bilateral hygromas and subdural hematomas
Repeat CT in a.m. or sooner if clinical status changes or if therapeutic PTT
Neurological checks
Neurosurgery consulted and input appreciated
Plan to revisit with neurosurgery as outpatient for possible MMA embolization
Off AED but monitor for any issues regarding this.
Permanent atrial fibrillation:
Started on anticoagulation with heparin drip
Continue rate control metoprolol succinate 50 mg twice a day
Patient has a history of AV node ablation and pacemaker, [employer] DC PPM--> seen continued paced rhythm on telemetry in the ED.
History of CVA:
Currently on heparin drip
Hypertension:
Continue current antihypertensive
History of AAA:
Continue to monitor and reduce modifiable risk factors
Chronic HFpEF:
Continue oral diuretic
Continue beta-iván
Monitor ins and outs and daily weights
Hypothyroidism:
Continue levothyroxine 150 mcg p.o. daily
Chronic pain with probable chronic opiate use dependence:
Continue chronic narcotic pain medications
Continue bowel regimen
DVT prophylaxis:
Heparin drip
CODE STATUS:
DNR-confirmed with patient and family at bedside today.
Total time spent on today's encounter was 85 minutes which included time spent in counseling the patient/family regarding diagnosis and treatment plan as listed above, goals of care, and symptom management. Case was discussed with nursing staff,
specialists. All labs and imaging personally reviewed by me. Remainder the time spent in detailed review of previous records, lab data, imaging, and other medical provider documentation.
--- NOTE | 2025-04-02 18:33 | EDRN ---
Noted patients daughter believed the patient to be saying unusual things--completed neuro check on patient with no defeccits or changes noted--patient continued conversating with the daughter who then remembered of a conversation they had earlier in
the day about Halloween skeletons---family was concerned and patient continued to answer questions from there appropriately with me and complete tasks without issue--I spoke with IMU staff about this on arrival to IMU--patient stood and pivoted into
room, answering questions appropriately
--- NOTE | 2025-04-02 18:53 | EDRN ---
Please note Dr. Hector Varela was made aware of evaluation and familys concern with mult eval done neurologically by RN after with no changes noted
[2025-04-02] MEDS: LASIX 20 MG PO (20:53)
[2025-04-02] MEDS: TOPROL XL 50 MG PO (20:54)
[2025-04-02] MEDS: ROXICODONE 20 MG PO (20:54)
[2025-04-02] MEDS: MS CONTIN (EXTENDED RELEASE) 30 MG PO (21:41)
[2025-04-02 22:36] LABS: APTT 44.4 Sec (23.4-35.0)
[2025-04-03] VITALS (13 sets, daily range): BP systolic 95–142; BP diastolic 61–106; BMI 27.7
[2025-04-03] MEDS: ROXICODONE 20 MG PO ×2 (05:06→17:42)
[2025-04-03] MEDS: SYNTHROID 150 MCG PO (05:06)
[2025-04-03] MEDS: HEPARIN 25000 UNITS/250 ML IV ×2 (05:10→22:21)
[2025-04-03 05:44] LABS: Hematocrit 41.2 % (39.0-52.0); Hemoglobin 13.8 g/dL (13.0-18.0); Mean Corp Hgb Conc. 33.5 g/dL (33.0-37.0); Mean Corpuscular Volume 90.7 fL (80.0-94.0); Nucleated Red Blood Cells % 0 % (-); Platelet Count 160 10^3/uL (130-400); Red Cell Dist. Width 14.4 % (11.5-14.5)
[2025-04-03 06:09] LABS: Blood Urea Nitrogen 11 mg/dl (9-20); Calcium 8.8 mg/dl (8.4-10.2); Carbon Dioxide 31 mmol/L (22-30); Chloride 102 mmol/L (98-107); Estimated Creatinine Clearance 115 ml/min; Glucose 105 mg/dl (70-99); Potassium 4.2 mmol/L (3.5-5.1); Sodium 137 mmol/L (135-145); eGFR > 60.00
[2025-04-03 06:40] LABS: APTT 131.7 Sec (23.4-35.0)
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
[2025-04-03] MEDS: VITAMIN B-12 1000 MCG PO (08:22)
[2025-04-03] MEDS: MS CONTIN (EXTENDED RELEASE) 30 MG PO ×2 (08:22→19:49)
[2025-04-03] MEDS: TOPROL XL 50 MG PO ×2 (08:23→19:49)
[2025-04-03] MEDS: VITAMIN D3 (cholecalciferol) 25 MCG PO (08:23)
--- NOTE | 2025-04-03 08:49 | W.PN.HOSP.TC ---
Today's Communication/Plan
-
Maintained on heparin drip with PTT range 60-80
continue IMU monitoring
monitor for any new neuro changes
Assessment / Plan
Assessment / Plan
1. Right lower ext superficial venous thrombosis
Doppler shows superficial thrombosis-->Nonocclusive thrombus formation of the right superficial femoral junction and greater saphenous vein to the level of the knee.
Neurosurgery cleared started on anticoagulation
Discussed with hematology who recommends closer monitoring in hospital with initiation of heparin and recent diagnosis of chronic subdural hematoma. Neurosurgery has recommended PTT goal of 60-[address] head in the morning today on therapeutic heparin drip showed no new changes
Await final hematology recommendation, based on my discussion in the morning today plan for likely switching patient to Eliquis 2-1/2 mg on twice daily for few weeks at discharge. Discussed briefly for IVC filter placement for prevention of any
future PE, hemat recommended against for time being
2. Recent Subdural hematoma
Presumed due to warfarin related coagulopathy diagnosed on 03/23/2020
Patient was transferred to [facility] on 03/23 for neurosurg evaluation, patient was taken off of warfarin at that time.
Patient was recommended to be maintained on Keppra although spouse felt patient was agitated and has been off of Keppra as well. No reported seizure activity
CT head yesterday and reviewed in the morning today stable findings of known subdural hematoma
Neurosurgery evaluated and input noted. Plan for revisiting MMA embolization if needed in outpatient setting
3. Permanent atrial fibrillation:
Currently on heparin drip
Continue rate control metoprolol succinate 50 mg twice a day
Patient has a history of AV node ablation and pacemaker, Medtronic DC PPM
Cardiology evaluated and will consider possible Watchman device.
4. History of CVA:
Apparently off of anticoagulation have history of CVA
5. Essential Hypertension:
Stricter BP control with SBP < 140 would be required with recent ICH
6. History of AAA:
Continue to monitor and reduce modifiable risk factors
7. Chronic HFpEF:
Continue oral diuretic
Continue beta-iván
Monitor ins and outs and daily weights
8. Hypothyroidism:
Continue levothyroxine 150 mcg p.o. daily
9. Chronic pain with probable chronic opiate use dependence:
Continue chronic narcotic pain medications
Continue bowel regimen
DVT prophylaxis:Heparin drip
CODE STATUS:DNR-confirmed with patient and family at bedside today.
High risk of complication of bleeding/seizures and continue IMU monitoring
Care plan discussed with hematology
Total time spent 55 minutes
Anticipated Discharge: 24 - 48 hours
Subjective/Interval History
-
Date of Service: April 03, 2025
Complaining of some right upper leg pain
No spasms
Remains afebrile
Objective Data
-
Labs:
Laboratory Results
04/02/25 04/03/25 04/03/25
22:18 05:27 08:32
WBC 9.4
Hgb 13.8
Hct 41.2
Plt Count 160
PT Pending
INR Pending
APTT 44.4 H 131.7 H
Sodium 137
Potassium 4.2
Chloride 102
Carbon Dioxide 31 H
BUN 11
Creatinine 0.6 L
Glucose 105 H
Calcium 8.8
04/03/25
09:15
WBC
Hgb
Hct
Plt Count
PT
INR
APTT Pending
Sodium
Potassium
Chloride
Carbon Dioxide
BUN
Creatinine
Glucose
Calcium
Vital Signs:
Vital Signs
Temp Pulse Resp BP Pulse Ox
100.0 F 80 19 140/91 96
04/03/25 02:58 04/03/25 08:23 04/03/25 06:00 04/03/25 08:23 04/03/25 06:19
I&O
04/02/25 04/03/25 04/04/25
06:59 06:59 06:59
Output Total 400 / 400
Balance -400 / -400
Review of Systems
-
Respiratory: Reports No Symptoms
Cardiac: Reports No Symptoms
Abdomen/GI: Reports No Symptoms
Physical Exam
-
General: No Apparent Distress and Comfortable
HEENT: Negative Oxygen
Respiratory: Clear to Auscultation
Cardiac: Regular Rhythm and S1/S2; Negative Murmur or Rub
Musculoskeletal: Edema, Right Lower Extrem (erythema at lower thigh)
Neuro: Awake, Alert, Oriented, No Motor Deficits and Nonfocal/Grossly Intact
Psych: Calm
--- NOTE | 2025-04-03 09:14 | CON.ONC ---
Consultation
-
Date Consultation Requested: 04/02/25
Date Consultation Performed: 04/03/25
Requesting Provider: Hector Varela MD
Performing Provider: Dr. Hanson
Reason for Consultation: Anticoagulation needs
Impression
Impression
Stable Subdural Hematomas Bilaterally
Nonocclusive superficial thromboses of the right lower extremitity
Permenant Afib
Plan
Plan
-Patient with both painful superficial nonocclusive thrombosis and Afib in the setting of bilateral subdural hematomas
-Ultimately, patient's anticoagulation needs need to be balanced with his subdural hematomas and risk of bleed.
-At this time, would recommend continuing Heparin while he is under observation with ultimate goal to transition to a DOAC, as this will most likely be safer than Coumadin and would certainly require less monitoring in the outpatient setting
-Spoke with Cardiology, who recommends Watchman device placement for his atrial fibrillation
-Given his history of atrial fibrillation, he would likely need 5mg BID of Eliquis following discharge
-Will monitor
Patient History
History of Present Illness
This is a 74 y/o male with pmhx of permanent atrial fibrillation, CHF, Coronary Artery Disease and chronic bilateral subdural hematomas who presented to the hospital on 04/02/2025 with right leg pain, redness and swelling.
Of note, he was recently seen at this hospital on 03/23/2025 after developing left hand shaking, weakness and altered coordination. At that time, a CT of the head showed new bilateral subdural hematomas. By his �s report today, he had an
outpatient CT scan in 12/2024 which did not show these findings. His INR at that time was 3.1. He was seen by both cardiology and neurosurgery in the ED and ultimately was transferred to [place] for further care.
At [facility], patient and his refused reversal with Vitamin K and KCentra. Patient had been on Coumadin for 20+ years at this point, and both and patient wished to continue it. He was ultimately discharged home on a new
prescription for Keppra, and without Coumadin. He followed up outpatient with neurosurgery on 03/29/2025 to discuss MMA embolization. Patient ultimately elected to proceed with observation of his subdural hematomas due to concern for blindness listed
as a side effect of that procedure. At that time, the plan was to follow up in 1-2 weeks to ensure stability.
At home, he experienced increased aggression and agitation which his associated with Keppra. His contacted the neurosurgeon, but when she did not hear back from them elected to stop Keppra on 03/29/2025.
On 04/02/2025, patient began to develop redness and swelling of the right lower extremity accompanied by a sensation of tightness in his posterior right thigh. He reported to the ED where ultrasound scan showed nonocclusive superficial thrombus of
the right lower extremity. He was started on heparin and admitted to the hospital for further management.
CT of head demonstrated stable subdural hematomas.
His reports his leg is 50% better today, but patient is still cleaner to touch. She reports his mentation has returned to how it was prior to his visit to the ED, which is the same as where it was prior to his recent hospitalization on 03/23/2025.
Past-Medical/Surgical History
Permanent atrial fibrillation
Chronic HFpEF
Coronary Artery Disease
Bilateral subdural hematomas
TIA vs Seizures (Reported)
S/p AV darius ablation
Patient Medication
�Medication �Instructions �Recorded �Confirmed �Last Taken �Type
cyanocobalamin (vitamin B-12) 1,000 mcg PO DAILY #30 tabs 01/06/22 04/02/25 04/02/25 Rx
1,000 mcg tablet
levothyroxine 150 mcg tablet 150 mcg PO DAILY@0700 #30 tabs 01/06/22 04/02/25 04/02/25 Rx
cholecalciferol (vitamin D3) 25 25 mcg PO DAILY 10/08/22 04/02/25 04/02/25 History
mcg (1,000 unit) capsule (Vitamin
D3)
furosemide 20 mg tablet 20 mg PO Q48H 10/08/22 04/02/25 04/01/25 History
metoprolol succinate 50 mg 50 mg PO BID 10/14/22 04/02/25 04/02/25 History
tablet,extended release 24 hr
docusate sodium 100 mg capsule 300 mg PO DAILY@1200 04/02/25 04/02/25 04/01/25 History
(Colace)
fluticasone propionate 50 1 spray intranasal DAILYPRN PRN 04/02/25 04/02/25 Unknown History
mcg/actuation nasal allergies
spray,suspension
morphine 15 mg tablet,extended 30 mg PO Q12H 04/02/25 04/02/25 04/02/25 History
release
oxycodone 10 mg tablet 20 mg PO BID@0530,1730 04/02/25 04/02/25 04/02/25 History
warfarin 1 mg tablet 1.75 mg PO QPM 04/02/25 04/02/25 03/22/25 History
Active Medications
Generic Name Dose Route Start Last Admin
Trade Name Freq PRN Reason Stop Dose Admin
Acetaminophen 650 mg 04/02/25 18:27
Acetaminophen 325 Mg Tablet PO 04/30/25 18:26
Q4HPRN PRN
mild pain/ZENG/temp> 100.4F
Bisacodyl 10 mg 04/02/25 18:27
Bisacodyl 10 Mg Rectal Suppository RECTAL 04/30/25 18:26
[id number] PRN
constipation
Cholecalciferol 25 mcg 04/03/25 08:00 04/03/25 08:23
Cholecalciferol (Vitamin D3) 25 Mcg Tablet (1,000 Units) PO 05/01/25 07:59 25 mcg
DAILY PEREZ Administration
Cyanocobalamin 1,000 mcg 04/03/25 08:00 04/03/25 08:22
Cyanocobalamin (Vitamin B-12) 500 Mcg Tablet PO 05/01/25 07:59 1,000 mcg
DAILY PEREZ Administration
Docusate Sodium 300 mg 04/03/25 12:00
Docusate Sodium 100 Mg Capsule PO 05/01/25 11:59
DAILY@1200 PEREZ
Furosemide 20 mg 04/02/25 17:00 04/02/25 20:53
Furosemide 20 Mg Tablet PO 04/30/25 16:59 20 mg
Q48H PEREZ Administration
Hydromorphone HCl 0.5 mg 04/02/25 18:27
Hydromorphone 0.5 Mg/0.5 Ml Syringe IV 04/16/25 18:26
Q4HPRN PRN
severe pain
Heparin Sodium 25,000 units in 250 mls @ 0 mls/hr 04/03/25 02:45 04/03/25 05:10
Heparin 03351 Units/250 Ml IV 250 mls
PER PROTOCOL PEREZ Administration
Protocol
Per Protocol
Levothyroxine Sodium 150 mcg 04/03/25 06:00 04/03/25 05:06
Levothyroxine 150 Mcg Tablet PO 05/01/25 05:59 150 mcg
DAILY@0600 PEREZ Administration
Metoprolol Succinate 50 mg 04/02/25 20:00 04/03/25 08:23
Metoprolol 50 Mg Extended Release Tablet PO 04/30/25 19:59 50 mg
BID PEREZ Administration
Morphine Sulfate 30 mg 04/02/25 21:15 04/03/25 08:22
Morphine 15 Mg Extended Release Tablet PO 04/16/25 21:14 30 mg
Q12 PEREZ Administration
Fluticasone 0 spray 04/02/25 16:48
Propionate 1 [place] NASAL
Nasally Once Daily DAILYPRN PRN
As Needed allergies
Oxycodone HCl 20 mg 04/02/25 17:30 04/03/25 05:06
Oxycodone 10 Mg Regular Release Tablet PO 04/16/25 17:29 20 mg
BID@0530,1730 PEREZ Administration
Oxycodone HCl 5 mg 04/02/25 18:27
Oxycodone 5 Mg Regular Release Tablet PO 04/16/25 18:26
Q4HPRN PRN
moderate pain
Polyethylene Glycol 17 grams 04/02/25 18:27
Polyethylene Glycol Powder 17 Grams Packet PO 04/30/25 18:26
DAILYPRN PRN
constipation
Senna/Docusate Sodium 1 tablet 04/02/25 18:27
Docusate W/Senna (Anne-Colace) Tablet PO 04/30/25 18:26
BIDPRN PRN
constipation
Sodium Chloride 0 flush 04/02/25 17:00
Sodium Chloride 0.9% (Flush) Syringe IV 04/30/25 16:59
PER PROTOCOL PEREZ
Review of Systems
-
History Source: Patient and Family (, Yenifer)
Constitutional: Denies Fever, Chills or Weakness
Respiratory: Denies Cough or Trouble Breathing
Cardiac: Denies Chest Pain
GI: Denies Abdominal Pain, Nausea, Vomiting, Diarrhea or Constipated
Musculoskeletal: Reports Muscle Pain
Skin: Reports Rash
Neuro: Denies Dizzy or Headache
Physical Exam
-
General: Well Developed, Well Nourished and No Apparent Distress
Cardiology: Irregular Rate/Rhythm
Pulmonary: Clear
Musculoskeletal: No Clubbing and No Cyanosis
Skin: Warm, Dry and Rash (There is an area of red skin on the posterior surface of the right thigh with associated pain on mild palpation. There are also chronic skin changes of the lower legs bilaterally.)
Psych: Calm and Other (Restless, frequently shifting from laying down to sitting on the side of the bed. Not participating much in the conversation unless prompted)
Labs
Lab Results
WBC 9.4 10^3/uL (4.8-10.8) 04/03/25 05:27
RBC 4.54 10^6/uL (4.70-6.10) L 04/03/25 05:27
Hgb 13.8 g/dL (13.0-18.0) 04/03/25 05:27
Hct 41.2 % (39.0-52.0) 04/03/25 05:27
MCV 90.7 fL (80.0-94.0) 04/03/25 05:27
MCH 30.4 pg (27.0-31.0) 04/03/25 05:27
MCHC 33.5 g/dL (33.0-37.0) 04/03/25 05:27
RDW 14.4 % (11.5-14.5) 04/03/25 05:27
Plt Count 160 10^3/uL (130-400) 04/03/25 05:27
MPV 9.9 fL (7.4-10.4) 04/03/25 05:27
Abs Immat Gran (auto) 0.1 10^3/uL (0-0.05) H 04/03/25 05:27
Absolute Neuts (auto) 7.0 10^3/uL (1.4-6.5) H 04/03/25 05:27
Absolute Lymphs (auto) 1.2 10^3/uL (1.2-3.4) 04/03/25 05:27
Absolute Monos (auto) 0.9 10^3/uL (0.1-0.6) H 04/03/25 05:27
Absolute Eos (auto) 0.2 10^3/uL (0-0.7) 04/03/25 05:27
Absolute Basos (auto) 0.1 10^3/uL (0-0.2) 04/03/25 05:27
Immature Gran % 0.7 % (0-0.5) H 04/03/25 05:27
Neutrophils % 73.8 % (42.2-75.2) 04/03/25 05:27
Lymphocytes % 12.6 % (20.5-51.1) L 04/03/25 05:27
Monocytes % 10.0 % (1.7-9.3) H 04/03/25 05:27
Eosinophils % 2.2 % (0-6) 04/03/25 05:27
Basophils % 0.7 % (0-2) 04/03/25 05:27
Creatinine 0.6 mg/dL (0.7-1.3) L 04/03/25 05:27
Vital Signs
Vital Signs
Temp Pulse Resp BP Pulse Ox
99.4 F 80 19 140/91 96
04/03/25 07:09 04/03/25 08:23 04/03/25 06:00 04/03/25 08:23 04/03/25 06:19
[2025-04-03 09:49] LABS: INR 1.40; PT 17.4 Sec (11.4-14.6)
[2025-04-03 09:51] LABS: APTT 72.9 Sec (23.4-35.0)
--- NOTE | 2025-04-03 13:09 | CM ---
Initial Assessment Completed by LON Bashir
Patient lives with his Yenifer in 2 Story Home with 3 steps to enter and a full flight inside. Patient has a rolling walker, but only used it recently due to leg weakness, he does not normally. Patient never had VN or PT services in the home, but
was outpatient with [facility] in 2021 for 6 months.
PCP: Dr. Edis Mays
Pharmacy: [facility] in [place]
Patient has transportation home when ready for discharge.
PLAN: Likely Home with No Needs vs. PT Outatient or Home
[2025-04-03] MEDS: COLACE 300 MG PO (13:18)
--- NOTE | 2025-04-03 15:22 | VATNOTE ---
R arm IV removed by PCN due to infiltration. Area of ecchymosis noted. Will continue to monitor.
[2025-04-03 16:21] LABS: APTT 64.3 Sec (23.4-35.0)
--- NOTE | 2025-04-03 17:23 | W.PN.UPDATE ---
Update Note
Progress Note Update
Repeat/follow-up CT scan of the head performed in 04/03/2025 at approximately 6 AM was reviewed. There is no evidence of interval acute hemorrhage in the setting of the patient's PTT being therapeutic.
Will defer transition to DOAC per cardiology/hematology/hospital medicine.
Patient is encouraged to maintain outpatient follow-up with cerebrovascular neurosurgery to revisit MMA embolization on 04/12/2025.
Will sign off. Call with questions
[2025-04-03] MEDS: TYLENOL 650 MG PO (17:42)
--- NOTE | 2025-04-03 19:25 | PTCARENOTE ---
Rec'd pt this AM, expressive aphasia waxes and wanes throughout the shift. Worse when pt is fatigued. vital signs remain stable. Heparin drip therapeutic.
[2025-04-04] VITALS (11 sets, daily range): BP systolic 111–160; BP diastolic 78–98; BMI 27.8; BMI 27.3
--- NOTE | 2025-04-04 03:48 | PTCARENOTE ---
Assumed care for patient overnight. Heparin gtt cont. PTT for AM. AAOx3. Mild expressive aphasia waxes and wanes. Pt having clear conversation. VSS. V-paced on the monitor. Assessment and care as charted. Call mathew within reach.
[2025-04-04] MEDS: ROXICODONE 20 MG PO ×2 (05:23→16:45)
[2025-04-04] MEDS: SYNTHROID 150 MCG PO (05:23)
[2025-04-04 05:35] LABS: Hematocrit 46.3 % (39.0-52.0); Hemoglobin 14.9 g/dL (13.0-18.0); Mean Corp Hgb Conc. 32.2 g/dL (33.0-37.0); Mean Corpuscular Volume 93.5 fL (80.0-94.0); Platelet Count 171 10^3/uL (130-400); Red Cell Dist. Width 14.6 % (11.5-14.5)
[2025-04-04 05:44] LABS: INR 1.28; PT 16.3 Sec (11.4-14.6)
[2025-04-04 05:47] LABS: APTT 88.1 Sec (23.4-35.0)
[2025-04-04 06:03] LABS: Blood Urea Nitrogen 11 mg/dl (9-20); Calcium 8.8 mg/dl (8.4-10.2); Carbon Dioxide 35 mmol/L (22-30); Chloride 102 mmol/L (98-107); Estimated Creatinine Clearance 115 ml/min; Glucose 104 mg/dl (70-99); Potassium 4.1 mmol/L (3.5-5.1); Sodium 140 mmol/L (135-145); eGFR > 60.00
[2025-04-04] MEDS: MS CONTIN (EXTENDED RELEASE) 30 MG PO ×2 (08:16→19:50)
[2025-04-04] MEDS: VITAMIN D3 (cholecalciferol) 25 MCG PO (08:16)
[2025-04-04] MEDS: VITAMIN B-12 1000 MCG PO (08:16)
[2025-04-04] MEDS: TOPROL XL 50 MG PO ×2 (08:16→19:50)
--- NOTE | 2025-04-04 08:36 | PTCARENOTE ---
Patient received from motor inspection mechanic. Patient resting comfortably in bed. AAO, VSS. No events noted overnight. No complaints of pain at this time. Heparin gtt at 1400 units/hr after PTT assessment of 88.1 to keep therapeutic range of 60-80. OOB
to chair today. No further testing scheduled at this time. Call mathew in reach.
--- NOTE | 2025-04-04 10:04 | W.PN.ONC ---
Today's Communication / Plan
-
Continues on heparin for now
Would transition to Eliquis, 5mg po BID (without loading dose due to risk of bleeding)
Further mgmt of Afib per cardiology
Hematology will sign off, pls call w/ questions
Impression
Impression
Stable Subdural Hematomas Bilaterally
Nonocclusive superficial thromboses of the right lower extremity
Permanant Afib
Plan
Plan
Continues on heparin for now
Would transition to Eliquis, 5mg po BID (without loading dose due to risk of bleeding)
Further mgmt of Afib per cardiology
Hematology will sign off, pls call w/ questions
Subjective/Objective
Subjective/Objective
medial right thigh is still very tender
no bleeding on heparin
no new issues
at bedside
Vital Signs:
Vital Signs
Temp Pulse Resp BP Pulse Ox
98.3 F 80 20 143/89 94
04/04/25 07:47 04/04/25 08:16 04/04/25 08:00 04/04/25 08:16 04/04/25 09:50
medial right thigh is still very tender
Lab Results:
Laboratory Data
WBC 9.9 10^3/uL (4.8-10.8) 04/04/25 05:18
Hgb 14.9 g/dL (13.0-18.0) 04/04/25 05:18
Plt Count 171 10^3/uL (130-400) 04/04/25 05:18
PT 16.3 Sec (11.4-14.6) H 04/04/25 05:18
INR 1.28 04/04/25 05:18
APTT 88.1 Sec (23.4-35.0) H 04/04/25 05:18
eGFR > 60.00 04/04/25 05:18
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
--- NOTE | 2025-04-04 11:46 | CM ---
Following up on Patient. RN stated that patient is still on a heparin drip so will convert to another medication soon. PT/OT has not evaluated the patient yet so Case Management will follow.
PLAN: Anticipate Home with PT vs. SNF (may not be approved again because was just at SNF for more than 3 weeks)
[2025-04-04] MEDS: COLACE PO (12:44)
--- NOTE | 2025-04-04 14:31 | W.PN.HOSP.TC ---
Today's Communication/Plan
-
transition to eliquis in evening
monitor overnight
possible d/c tomorrow
Assessment / Plan
Assessment / Plan
1. Right lower ext superficial venous thrombosis
Doppler shows superficial thrombosis-->Nonocclusive thrombus formation of the right superficial femoral junction and greater saphenous vein to the level of the knee.
Neurosurgery cleared started on anticoagulation
Discussed with hematology who recommends closer monitoring in hospital with initiation of heparin and recent diagnosis of chronic subdural hematoma. Neurosurgery has recommended PTT goal of 60-[address] head in the morning today on therapeutic heparin drip showed no new changes
Await final hematology recommendation, based on my discussion in the morning today plan for likely switching patient to Eliquis 5 mg on twice daily for few weeks at discharge. Discussed briefly for IVC filter placement for prevention of any future
PE, hemat recommended against for time being
2. Recent Subdural hematoma
Presumed due to warfarin related coagulopathy diagnosed on 03/23/2020
Patient was transferred to [facility] on 03/23 for neurosurg evaluation, patient was taken off of warfarin at that time.
Patient was recommended to be maintained on Keppra although spouse felt patient was agitated and has been off of Keppra as well. No reported seizure activity
CT head in ER and next day showed stable findings of known subdural hematoma
Neurosurgery evaluated and input noted. Plan for revisiting MMA embolization if needed in outpatient setting
3. Permanent atrial fibrillation:
Currently on heparin drip
Continue rate control metoprolol succinate 50 mg twice a day
Patient has a history of AV node ablation and pacemaker, Medtronic DC PPM
Cardiology evaluated and will consider possible Watchman device.
4. History of CVA:
Apparently off of anticoagulation have history of CVA
5. Essential Hypertension:
Stricter BP control with SBP < 140 would be required with recent ICH
6. History of AAA:
Continue to monitor and reduce modifiable risk factors
7. Chronic HFpEF:
Continue oral diuretic
Continue beta-iván
Monitor ins and outs and daily weights
8. Hypothyroidism:
Continue levothyroxine 150 mcg p.o. daily
9. Chronic pain with probable chronic opiate use dependence:
Continue chronic narcotic pain medications
Continue bowel regimen
DVT prophylaxis:Heparin drip
CODE STATUS:DNR-confirmed with patient and family at bedside today.
High risk of complication of bleeding/seizures and continue IMU monitoring
Anticipated Discharge: Within 24 hours
Subjective/Interval History
-
Date of Service: April 04, 2025
Continues to have right thigh pain
No other acute issues reported
Objective Data
-
Labs:
Laboratory Results
04/04/25 04/04/25
05:18 13:00
WBC 9.9
Hgb 14.9
Hct 46.3
Plt Count 171
PT 16.3 H
INR 1.28
APTT 88.1 H Pending
Sodium 140
Potassium 4.1
Chloride 102
Carbon Dioxide 35 H
BUN 11
Creatinine 0.6 L
Glucose 104 H
Calcium 8.8
Vital Signs:
Vital Signs
Temp Pulse Resp BP Pulse Ox
98 F 80 20 143/89 94
04/04/25 12:35 04/04/25 08:16 04/04/25 08:00 04/04/25 08:16 04/04/25 09:50
I&O
04/03/25 04/04/25 04/05/25
06:59 06:59 06:59
Output Total 400 / 400 1150 / 1150 200 / 200
Balance -400 / -400 -1150 / -1150 -200 / -200
Review of Systems
-
Respiratory: Reports No Symptoms
Cardiac: Reports No Symptoms
Abdomen/GI: Reports No Symptoms
Physical Exam
-
General: No Apparent Distress and Comfortable
HEENT: Negative Oxygen
Respiratory: Clear to Auscultation
Cardiac: Regular Rhythm and S1/S2; Negative Murmur or Rub
Musculoskeletal: Edema, Right Lower Extrem (erythema at lower thigh)
Neuro: Awake, Alert, Oriented, No Motor Deficits and Nonfocal/Grossly Intact
Psych: Calm
[2025-04-04] MEDS: HEPARIN 25000 UNITS/250 ML IV (14:49)
[2025-04-04 15:26] LABS: APTT 72.2 Sec (23.4-35.0)
[2025-04-04] MEDS: LASIX 20 MG PO (16:45)
[2025-04-04] MEDS: ELIQUIS 5 MG PO (19:50)
--- NOTE | 2025-04-04 20:44 | PTCARENOTE ---
Heparin gtt off and d/c'd. Pt transitioned to Eliquis, administered see SEP.
[2025-04-05] VITALS (8 sets, daily range): BP systolic 123–150; BP diastolic 81–110; PULSE 82; O2SAT 100; BMI 27.7
--- NOTE | 2025-04-05 02:29 | DOWNTIME ---
There was a [employer] Client Community Education Specialist Downtime on 04/05/2025 from 0100 to 04/05/2025 at 0215. Downtime documentation of patient's care, including medication administrations, has been reconciled in the electronic record per guidelines. Refer to the
patient's paper chart under the miscellaneous tab to see printed paper medication records and downtime forms.
[2025-04-05] MEDS: SYNTHROID 150 MCG PO (05:26)
[2025-04-05] MEDS: ROXICODONE 20 MG PO (05:26)
[2025-04-05 06:03] LABS: Hematocrit 43.9 % (39.0-52.0); Hemoglobin 14.2 g/dL (13.0-18.0); Mean Corp Hgb Conc. 32.3 g/dL (33.0-37.0); Mean Corpuscular Volume 94.2 fL (80.0-94.0); Platelet Count 176 10^3/uL (130-400); Red Cell Dist. Width 14.6 % (11.5-14.5)
[2025-04-05 06:12] LABS: INR 1.37; PT 17.1 Sec (11.4-14.6)
[2025-04-05 06:49] LABS: Blood Urea Nitrogen 11 mg/dl (9-20); Calcium 9.2 mg/dl (8.4-10.2); Carbon Dioxide 37 mmol/L (22-30); Chloride 100 mmol/L (98-107); Estimated Creatinine Clearance 115 ml/min; Glucose 105 mg/dl (70-99); Potassium 5.4 mmol/L (3.5-5.1); Sodium 140 mmol/L (135-145); eGFR > 60.00
[2025-04-05] MEDS: VITAMIN B-12 1000 MCG PO (09:03)
[2025-04-05] MEDS: MS CONTIN (EXTENDED RELEASE) 30 MG PO (09:04)
[2025-04-05] MEDS: TOPROL XL 50 MG PO (09:04)
[2025-04-05] MEDS: ELIQUIS 5 MG PO (09:04)
[2025-04-05] MEDS: VITAMIN D3 (cholecalciferol) 25 MCG PO (09:05)
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
[2025-04-05] MEDS: LOKELMA 10 GRAM PO (09:20)
--- NOTE | 2025-04-05 10:23 | PTOTSP ---
pt currently requires supervision to no assistance to complete simple ADLs, functional transfers, ambulation. pt demonstrates ability to complete tasks without pain, reports swelling is better. no acute OT needs identified at this time, will sign
off.
--- NOTE | 2025-04-05 10:28 | W.PN.HOSP.TC ---
Today's Communication/Plan
-
PT evaluation
discharge planning
Assessment / Plan
Assessment / Plan
1. Right lower ext superficial venous thrombosis
Doppler shows superficial thrombosis-->Nonocclusive thrombus formation of the right superficial femoral junction and greater saphenous vein to the level of the knee.
Neurosurgery cleared started on anticoagulation at admission.
Discussed with hematology who recommends closer monitoring in hospital with initiation of heparin and recent diagnosis of chronic subdural hematoma. Neurosurgery has recommended PTT goal of 60-80 on heparin drip.
Repeat CT head on heparin drip showed stable hematoma
Patient has been taken off of heparin drip and now started on eliquis 5mg BID
Cardiology/neuro surg/hematology help appreciated
2. Recent Subdural hematoma
Presumed due to warfarin related coagulopathy diagnosed on 03/23/2020
Patient was transferred to [facility] on 03/23 for neurosurg evaluation, patient was taken off of warfarin at that time.
Patient was recommended to be maintained on Keppra although spouse felt patient was agitated and has been off of Keppra as well. No reported seizure activity
CT head in ER and next day showed stable findings of known subdural hematoma
Neurosurgery evaluated and input noted. Plan for revisiting MMA embolization if needed in outpatient setting
3. Permanent atrial fibrillation:
Continue rate control metoprolol succinate 50 mg twice a day
Patient has a history of AV node ablation and pacemaker, [employer] DC PPM
Cardiology evaluated and will consider possible Watchman device otupt basis
has been switched to eliquis for anit-coagulation
4. History of CVA:
Apparently off of anticoagulation have history of CVA
5. Essential Hypertension:
Stricter BP control with SBP < 140 would be required with recent ICH
6. History of AAA:
Continue to monitor and reduce modifiable risk factors
7. Chronic HFpEF:
Continue oral diuretic
Continue beta-iván
Monitor ins and outs and daily weights
8. Hypothyroidism:
Continue levothyroxine 150 mcg p.o. daily
9. Chronic pain with probable chronic opiate use dependence:
Continue chronic narcotic pain medications
Continue bowel regimen
DVT prophylaxis:Heparin drip
CODE STATUS:DNR-confirmed with patient and family at bedside today.
Anticipated Discharge: Today
Subjective/Interval History
-
Date of Service: April 05, 2025
right thigh pain has improved
no other reported issues
Objective Data
-
Labs:
Laboratory Results
04/05/25
05:49
WBC 9.9
Hgb 14.2
Hct 43.9
Plt Count 176
PT 17.1 H
INR 1.37
Sodium 140
Potassium 5.4 H D
Chloride 100
Carbon Dioxide 37 H
BUN 11
Creatinine 0.6 L
Glucose 105 H
Calcium 9.2
Vital Signs:
Vital Signs
Temp Pulse Resp BP Pulse Ox
98.3 F 80 20 150/110 93
04/05/25 07:20 04/05/25 06:00 04/05/25 06:00 04/05/25 06:00 04/05/25 06:00
I&O
04/04/25 04/05/25 04/06/25
06:59 06:59 06:59
Output Total 1150 / 1150 775 / 775 100 / 100
Balance -1150 / -1150 -775 / -775 -100 / -100
Review of Systems
-
Respiratory: Reports No Symptoms
Cardiac: Reports No Symptoms
Abdomen/GI: Reports No Symptoms
Physical Exam
-
General: No Apparent Distress and Comfortable
HEENT: Negative Oxygen
Respiratory: Clear to Auscultation
Cardiac: Regular Rhythm and S1/S2; Negative Murmur or Rub
Musculoskeletal: Edema, Right Lower Extrem (erythema at lower thigh)
Neuro: Awake, Alert, Oriented, No Motor Deficits and Nonfocal/Grossly Intact
Psych: Calm
[2025-04-05] MEDS: COLACE PO (13:04)
--- NOTE | 2025-04-05 13:31 | CM ---
Addendum entered by Krysten Grullon 04/05/25 13:40:
IMM Completed
Original Note:
Following up on Patient. RN called because the had a question about the Eliquis.
and patient stated that their is a deductible that they have to pay, $536, but wondered if there was anything that could be done because the RN mentioned Case Management assist with drug coupons.
LON Bashir explaine that we do not assist, but can call to see if the pharmacy has options or family can. LON Bashir volunteered to call and [facility] had a free months coupon, but after 1 month, patient has to pay this high deductible because of their
prescription plan.
and patient were very happy.
PLAN: Discharge home no needs.
--- NOTE | 2025-04-05 14:58 | PTCARENOTE ---
Patient discharged to home. Discharge instructions reviewed and all questions answered. Patient also left with script for follow up BMP. Patient was escorted to main lobby via wheel chair. Patient left with all known belongings.
--- NOTE | 2025-04-06 08:12 | W.DCSUMMARY ---
Discharge Summary
Discharge Data
Date of Admission: 04/02/25
Date of Discharge: 04/05/25
-
Pending Results: No
Hospital Course
Discharging Physician : Dr López Anderson
Disposition : Home
Primary care physician : Dr Edis Mays
Principal Discharge diagnosis :
Right lower extremity venous thrombosis involving junction of superficial femoral/saphenous vein
Recent subdural hematoma presumably from warfarin related coagulopathy
Chronic Discharge diagnosis :
Permanent atrial fibrillation
History of stroke
Essential hypertension
History of abdominal aortic aneurysm
Chronic diastolic congestive heart failure
Hypothyroidism
Chronic pain with chronic opiate dependance
Hospital Course :
Patient is a 74-year-old male with admission past medical history came to ER for having new onset of right leg/thigh swelling with significant pain and tenderness. Patient noticed increased erythema in the leg as well. Patient has been recently
diagnosed with new subdural hematoma and has been taken off of warfarin which patient was taking for A-fib. Patient was more or less bedbound for 2 weeks after the diagnosis. Patient had an ultrasound of lower extremity in ER which showed venous
thrombosis at the junction of right superficial femoral arterial and greater saphenous vein at the level of the knee. Patient with recent history of subdural hematoma hematology and neurosurgery was involved in care. Patient did a CT head which
showed stable subdural hemorrhage. Patient was started on heparin drip after discussion with hepatology and had follow-up brain imaging which showed stable findings of hemorrhage. Cardiology was involved in care who is planning to follow-up with
patient in office for possible evaluation of Watchman device with increased risk of bleeding complication. After discussion with family patient was transition to Eliquis therapy. Patient was monitored in hospital on Eliquis and did not have any
further issues. Patient was discharged home at this point with follow-up with cardiology in office.
Important imaging findings :
None
Procedure findings :
None
Discharge Plan
-
Patient Disposition: Home with Home Care
Discharge Diagnosis/Procedures: Right leg superficial venous thrombosis, recent subdural hematoma
Condition: Fair
Diet: 2 Gram Sodium
Additional Diets: 2g potassium diet
Activity: As tolerated
Driving Restrictions: No driving
Bathing Restrictions: OK to Shower
Referrals:
Fredis Bond MD [Active, Neurology]
Referral Note: Please call office for new patient appointment
John Reece MD [Active, Cardiology] - 05/04/25 10:20 am
Referral Note: You have an appointment to see Dr. Reece's nurse practitioner, Samaira, at the [facility] office on 05/04/2025 at 10:20 AM. Please call [phone] if need to reschedule.
Edis Mays MD [Family Provider, [facility]] - in one week
Additional Discharge Medication Instructions: - Stop taking Coumadin (warfarin), it has been replaced with Eliquis 5 mg twice daily. The Coumadin clinic at Dr. Reece's office was updated.
Prescriptions:
New
Eliquis 5 mg Tablet
5 mg PO BID Qty: 60 11RF
(DME) BMP
See Rx Instructions .Route .MEDSUPPLY Qty: 1 0RF
Rx Instructions:
BMP in 1 week
Dx : Hyperkalemia
Forward result to primary care physician
Continued
furosemide 20 mg Tablet
20 mg PO Q48H
cholecalciferol (vitamin D3) [Vitamin D3] 25 mcg (1,000 unit) Capsule
25 mcg PO DAILY
metoprolol succinate 50 mg Tablet Extended Release 24 Hr
50 mg PO BID
fluticasone propionate 1 SPRAY spray,suspension
1 spray intranasal DAILYPRN PRN (Reason: allergies)
morphine 15 mg Tablet Extended Release
30 mg PO Q12H
oxycodone 10 mg Tablet
20 mg PO BID@0530,1730
docusate sodium [Colace] 100 mg Capsule
300 mg PO DAILY@1200
levothyroxine 150 MCG tablet
150 mcg PO DAILY@0700 Qty: 30 0RF
cyanocobalamin (vitamin B-12) 1,000 MCG tablet
1,000 mcg PO DAILY Qty: 30 0RF
Discontinued
warfarin 1 mg Tablet
1.75 mg PO QPM
Discharge Orders:
Discharge Patient (As Directed); Ordered 04/05/25
Ordered By: López Anderson
Discharge Date and Time
Discharge Date/Time: 04/05/25 15:00
Print Language: BULGARIAN
== END 2025-04-05 15:00 | disposition home or self-care (01) | DRG 299 ==
LOC: IMU 16:20
PROVIDERS: Physician Assistant Medical; ADMITTING PHYSICIAN Hospitalist; ATTENDING PHYSICIAN Hospitalist; EMERGENCY PHYSICIAN Emergency Medicine; FAMILY PHYSICIAN Family Medicine; OTHER PHYSICIAN Internal Medicine Cardiovascular Disease; OTHER PHYSICIAN Internal Medicine Hematology & Oncology
DX: I82.411 Acute embolism and thrombosis of right femoral vein (principal); I62.03 Nontraumatic chronic subdural hemorrhage; F11.20 Opioid dependence, uncomplicated; I48.21 Permanent atrial fibrillation; I50.32 Chronic diastolic (congestive) heart failure; I82.811 Embolism and thrombosis of superficial veins of right lower extremity; I11.0 Hypertensive heart disease with heart failure; I25.10 Atherosclerotic heart disease of native coronary artery without angina pectoris; Z66 Do not resuscitate; E03.9 Hypothyroidism, unspecified; E87.5 Hyperkalemia; K59.00 Constipation, unspecified; Z79.890 Hormone replacement therapy; Z86.79 Personal history of other diseases of the circulatory system; Z95.0 Presence of cardiac pacemaker; Z86.73 Personal history of transient ischemic attack (TIA), and cerebral infarction without residual deficits; Z79.899 Other long term (current) drug therapy
CPT/HCPCS: 70450; 80048; 85025; 85027; 85610; 85730; 93971; 96372; 97162; 97166; 99291

== ENCOUNTER 2025-04-17 09:19 | Emergency (ER) | payer MEDICARE, SELFPAY ==
[2025-04-17] VITALS (8 sets, daily range): BP systolic 127–144; BP diastolic 83–103; BMI 28.3
[2025-04-17 10:45] LABS: Hematocrit 41.5 % (39.0-52.0); Hemoglobin 13.5 g/dL (13.0-18.0); Mean Corp Hgb Conc. 32.5 g/dL (33.0-37.0); Mean Corpuscular Volume 92.6 fL (80.0-94.0); Nucleated Red Blood Cells % 0 % (-); Platelet Count 203 10^3/uL (130-400); Red Cell Dist. Width 14.6 % (11.5-14.5)
--- NOTE | 2025-04-17 10:52 | ED.GENMED ---
History of Present Illness
General
Chief Complaint: CVA/TIA Symptoms
Source: patient
Exam Limitations: none
Time Seen by Provider: 04/17/25 10:51
Nursing documentation reviewed up to this point in time: agreed with except (patient is not here for failure to thrive)
History of Present Illness
History of Present Illness:
74-year-old male with history of A-fib on Eliquis, CVA 3 years ago with residual mild aphasia, cardiomyopathy, CHF, CAD, HTN, pacemaker, GI bleed, hypothyroid, subdural hematoma presents from home for an episode of expressive aphasia. Patient
states 'I could not get my words out.'
arrives and says at 8:30 AM they were sitting watching TV, he went to get up and could not get his words out for about 2 or 3 minutes, he just moaned trying to speak and she noticed a left mouth droop. After 2 or 3 minutes he was totally back
to normal baseline and he has remained there since.
Patient had a visit with his PCP Dr. Mays last week and 'everything was fine.'
03/23/25 L arm dysfunction and Transferred to [place] for right brain subdural bleed.
Coumadin DC'd after 20 years.
He was referred by Dr. Bautista, Neuro to [facility] for MMA procedure but pt declined when told 3% risk of blindness.
04/02 to 04/05 for leg swelling and found to have thrombosis of R superficial femoral vein; head CT showed stable recent subdural hemorrhage and subsequently had Heparin bridge and placed back on Eliquis 5 mg BID at discharge.
He recently saw his urologist Dr. Pacheco for hematuria, abdominal CT was unremarkable and he was told it was most likely due to him being on Eliquis and just observe.
Past History
Past History
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 ),
CHF, CVA (Expressive aphasia), GERD, HTN, Hypothyroidism, Other ( Petty's esophagus , back and neck pain chronic, DVT, renal calculus, ), Other (Vasovagal syncope, DVT, osteoarthritis with chronic pain syndrome/narcotic dependent, BPH) and Other
(Patient Denies gastric erosion and GI bleeding)
ED Past Surgical History: Cardiac (AV sequential pacemaker after ablation for atrial fibrillation ), Orthopedic and Other (Cataracts, Deviated septum, )
Social History
Tobacco: Non-smoker
Alcohol: None
Drug: None
Personal:
Living: with family
Employment: Retired
Family History
Family History: CAD; Negative Diabetes
Review of Systems
Review of Systems
Allergies reviewed?: Yes
All Other Systems: ROS reviewed and negative except as documented in HPI and ROS
Phy Exam
Physical Exam
Physical Exam:
GENERAL: No acute distress. A&Ox3.
CONSTITUTIONAL: Afebrile.
EYES: clear, conjunctivae normal
ENMT: moist mucus membranes, Pharynx nl
RESPIRATORY: Regular respirations, nonlabored, lungs clear.
CARDIOVASCULAR: Regular rate and rhythm, no murmurs, no rubs.
GI: Soft, nontender, normal BS
MUSCULOSKELETAL: Moves with ease. Well perfused.
SKIN: Warm, dry, pink
PSYCH: Normal mood and affect. Well kept, interactive and appropriate
NEUROLOGIC: Awake, alert and oriented. No focal neurological deficits
Course
Orders/Labs/Results
Orders:
Orders
04/17/25 10:25
Complete Blood Count/With Diff Urgent
Comprehensive Metabolic Panel Urgent
04/17/25 10:54
Urinalysis Reflex To Culture Urgent
Date Specimen was Collected: 04/17/25
Time Specimen was Collected: 10:53
Urine Microscopic Reflex Cult Urgent
Urine Culture Urgent
KY[facility] Source: U
Specimen Description:
Date Specimen was Collected: 04/17/25
Time Specimen was Collected: 10:53
04/17/25 11:43
CT Head & Neck Angio W/wo IV Urgent
Comment:
Reason For Exam: episode expressive aphasia
04/17/25 16:31
Cephalexin Monohydrate [Keflex] 500 mg PO NOW STA
Abnormal Lab Results
04/17/25 04/17/25
10: 10:54
RBC 4.48 L 10^6/uL
(4.70-6.10)
MCHC 32.5 L g/dL
(33.0-37.0)
RDW 14.6 H %
(11.5-14.5)
Abs Immat Gran (auto) 0.1 H 10^3/uL
(0-0.05)
Absolute Lymphs (auto) 1.0 L 10^3/uL
(1.2-3.4)
Absolute Monos (auto) 0.7 H 10^3/uL
(0.1-0.6)
Immature Gran % 0.9 H %
(0-0.5)
Lymphocytes % 13.3 L %
(20.5-51.1)
Carbon Dioxide 33 H mmol/L
(22-30)
Glucose 111 H mg/dl
(70-99)
Total Bilirubin 1.4 H mg/dl
(0.2-1.3)
AST 16 L U/L
(17-59)
Urine Ketones 1+ A
(Negative)
Ur Occult Blood Reflex 4+ A
(Negative)
Urine Nitrite (Reflex) Positive A
(Negative)
Leukocyte Esterase Rfl 2+ A
(Negative)
Urine RBC 70-80 A /HPF
(0-2)
Urine WBC (Reflex) 21-25 A /HPF
(0-5)
Urine Bacteria (Reflex) Few A
(Negative)
Urine Albumin (Reflex) 3+ A
(Neg - Trace)
04/17/25 10:25
04/17/25 10:25
Vital Signs
Initial and Last Documented VS:
Initial Vital Signs
Temp Pulse Resp BP Pulse Ox
98.0 F 82 16 144/91 98
04/17/25 09:23 04/17/25 09:23 04/17/25 09:23 04/17/25 09:23 04/17/25 09:23
Last Documented Vital Signs
Temp Pulse Resp BP Pulse Ox
98.0 F 80 20 127/83 96
04/17/25 09:23 04/17/25 16:30 04/17/25 16:30 04/17/25 16:00 04/17/25 16:15
MDM/Problems Addressed
MDM/Problems Addressed:
74-year-old male with history of A-fib on Eliquis, CVA 3 years ago with residual mild aphasia, cardiomyopathy, CHF, CAD, HTN, pacemaker, GI bleed, hypothyroid, subdural hematoma presents from home for an episode of expressive aphasia. Patient
states 'I could not get my words out.'
arrives and says at 8:30 AM they were sitting watching TV, he went to get up and could not get his words out for about 2 or 3 minutes, he just moaned trying to speak and she noticed a left mouth droop. After 2 or 3 minutes he was totally back
to normal baseline and he has remained there since.
Patient had a visit with his PCP Dr. Mays last week and 'everything was fine.'
03/23/25 L arm dysfunction and Transferred to [place] for right brain subdural bleed.
Coumadin DC'd after 20 years.
He was referred by Dr. Bautista, Neuro to [facility] for MMA procedure but pt declined when told 3% risk of blindness.
04/02 to 04/05 for leg swelling and found to have thrombosis of R superficial femoral vein; head CT showed stable recent subdural hemorrhage and subsequently had Heparin bridge and placed back on Eliquis 5 mg BID at discharge.
He recently saw his urologist Dr. Pacheco for hematuria, abdominal CT was unremarkable and he was told it was most likely due to him being on Eliquis and just observe.
CBC with no clinically significant abnormality
CMP with no clinically significant abnormality
4:15 p.m.
CTA head and neck radiology report read:
IMPRESSION:
1. Unchanged appearance of chronic bilateral subdural hematomas.
2. Mild cerebral atrophy and chronic white matter disease.
3. No large vessel occlusion or dissection appreciated.
4. Mild atherosclerotic plaque within the carotid bulbs and proximal ICAs without significant stenosis.
5. Multilevel cervical spondylosis with reversal of the normal cervical lordosis.
Discussed results with Dr. Bond who agrees pt ok for discharge
U/A: consistent with UTI, urine culture pending
Starting on Keflex rx sent to pharmacy
Stable for discharge
Has an appointment with Dr. Reece on 05/04
Made Neuro follow up appointment 06/27
*Pulse Oximetry
SaO2: 98
Oxygen Mode of Delivery: Room air
Patient hypoxic: no
*Critical Care Note
Total Time (30-74mins, 75-104mins- exclusive of procedures): Not Applicable
ED Attending Note
-
Portions of this chart may have been created with voice recognition software.� Occasional wrong word or��sound alike� substitutions may have occurred due to the inherent limitations of voice recognition software.
Discharge Plan
Departure
Patient Disposition: Home (Routine Discharge)
Date of Disposition: 04/17/25
Time of Disposition: 16:34
Patient with high blood pressure during this ER visit?: No
Condition: Good
Discharge Problem:
Expressive aphasia, Acute UTI
Instructions: Urinary tract infections in adults, Transient Ischemic Attack (DC)
Prescriptions:
New
cephalexin 500 mg capsule
500 mg PO QID 7 Days Qty: 28 0RF
No Action
furosemide 20 mg Tablet
20 mg PO Q48H
cholecalciferol (vitamin D3) [Vitamin D3] 25 mcg (1,000 unit) Capsule
25 mcg PO DAILY
metoprolol succinate 50 mg Tablet Extended Release 24 Hr
50 mg PO BID
fluticasone propionate 1 SPRAY spray,suspension
1 spray intranasal DAILYPRN PRN (Reason: allergies)
morphine 15 mg Tablet Extended Release
30 mg PO Q12H
oxycodone 10 mg Tablet
20 mg PO BID@0530,1730
docusate sodium [Colace] 100 mg Capsule
300 mg PO DAILY@1200
Eliquis 5 mg Tablet
5 mg PO BID Qty: 60 11RF
(DME) BMP
See Rx Instructions .Route .MEDSUPPLY Qty: 1 0RF
Rx Instructions:
BMP in 1 week
Dx : Hyperkalemia
Forward result to primary care physician
levothyroxine 150 MCG tablet
150 mcg PO DAILY@0700 Qty: 30 0RF
cyanocobalamin (vitamin B-12) 1,000 MCG tablet
1,000 mcg PO DAILY Qty: 30 0RF
Referrals:
John Reece MD [Active, Cardiology] - Keep scheduled appt
Edis Mays MD [Family Provider, Family Practice]
Activity Restrictions/Additional Instructions:
As we discussed, I sent a prescription to your pharmacy for Keflex to take 500 mg 4 times a day for 7 days for your urinary tract infection.
You MAY have had a TIA.
Return here immediately for any further episodes of difficulty speaking or any other concerns
Interventions
Interventions:
*Risk Screen - Suicide Last Done: 04/17/25 09:23
*General Assessment Last Done: 04/17/25 10:19
*Neglect/Abuse Screening Last Done: 04/17/25 09:23
*ED- Fall Risk Assessment Last Done: 04/17/25 10:19
*ED COVID-19 Vaccine History Last Done: 04/17/25 10:19
*ED Influenza Vaccine History Last Done: 04/17/25 10:19
*Nursing Disposition Last Done: 04/17/25 16:52
ED- Cardiac Assessment Last Done: 04/17/25 11:32
ED- Neurological Assessment Last Done: 04/17/25 11:32
ED- Pulmonary Assessment Last Done: 04/17/25 11:32
ED Swallowing Screen Last Done: 04/17/25 15:38
Discharge Date and Time
Discharge Date/Time: 04/17/25 17:00
Print Language: TURKMEN
[2025-04-17 11:00] LABS: ALT (SGPT) < 10 U/L (0-50); AST (SGOT) 16 U/L (17-59); Albumin 3.5 g/dl (3.5-5.0); Alkaline Phosphatase 66 U/L (38-126); Blood Urea Nitrogen 12 mg/dl (9-20); Calcium 8.9 mg/dl (8.4-10.2); Carbon Dioxide 33 mmol/L (22-30); Chloride 101 mmol/L (98-107); Estimated Creatinine Clearance 86 ml/min; Glucose 111 mg/dl (70-99); Potassium 4.5 mmol/L (3.5-5.1); Sodium 137 mmol/L (135-145); Total Protein 7.0 g/dl (6.3-8.2); eGFR > 60.00
[2025-04-17 11:05] LABS: Urine Character Slightly Cloudy (Clear)
[2025-04-17 11:29] LABS: Urine Red Blood Cell 70-80 /HPF (0-2); Urine Squamous Cell 0-2 /LPF (Few); Urine White Cell 21-25 /HPF (0-5)
[2025-04-17] MEDS: KEFLEX 500 MG PO (16:40)
== END 2025-04-17 17:00 | disposition home or self-care (01) ==
LOC: EMR 09:19
PROVIDERS: Registered Nurse; EMERGENCY PHYSICIAN Student in an Organized Health Care Education/Training Program; FAMILY PHYSICIAN Family Medicine
DX: R47.01 Aphasia (principal); N39.0 Urinary tract infection, site not specified; I48.91 Unspecified atrial fibrillation; I42.9 Cardiomyopathy, unspecified; I25.10 Atherosclerotic heart disease of native coronary artery without angina pectoris; I11.0 Hypertensive heart disease with heart failure; I50.9 Heart failure, unspecified; I69.320 Aphasia following cerebral infarction; E03.9 Hypothyroidism, unspecified; K21.9 Gastro-esophageal reflux disease without esophagitis; K22.70 Barrett's esophagus without dysplasia; N40.0 Benign prostatic hyperplasia without lower urinary tract symptoms; M54.2 Cervicalgia; G89.4 Chronic pain syndrome; F11.20 Opioid dependence, uncomplicated; M19.90 Unspecified osteoarthritis, unspecified site; Z79.01 Long term (current) use of anticoagulants; Z86.718 Personal history of other venous thrombosis and embolism; Z95.0 Presence of cardiac pacemaker; Z82.49 Family history of ischemic heart disease and other diseases of the circulatory system
CPT/HCPCS: 99284; 70496; 70498; 80053; 81003; 81015; 85025; 87077; 87086; 87186; Q9967

== ENCOUNTER 2025-04-20 15:12 | Emergency (ER) | payer MEDICARE, SELFPAY ==
[2025-04-20] VITALS (9 sets, daily range): BP systolic 117–140; BP diastolic 81–99; BMI 28.2
[2025-04-20 15:39] LABS: Hematocrit 43.0 % (39.0-52.0); Hemoglobin 13.8 g/dL (13.0-18.0); Mean Corp Hgb Conc. 32.1 g/dL (33.0-37.0); Mean Corpuscular Volume 96.2 fL (80.0-94.0); Nucleated Red Blood Cells % 0 % (-); Platelet Count 207 10^3/uL (130-400); Red Cell Dist. Width 14.5 % (11.5-14.5)
[2025-04-20 15:51] LABS: ALT (SGPT) < 10 U/L (0-50); AST (SGOT) 17 U/L (17-59); Albumin 3.7 g/dl (3.5-5.0); Alkaline Phosphatase 67 U/L (38-126); Blood Urea Nitrogen 11 mg/dl (9-20); Calcium 8.7 mg/dl (8.4-10.2); Carbon Dioxide 35 mmol/L (22-30); Chloride 100 mmol/L (98-107); Estimated Creatinine Clearance 86 ml/min; Glucose 109 mg/dl (70-99); Potassium 3.6 mmol/L (3.5-5.1); Sodium 140 mmol/L (135-145); Total Protein 7.3 g/dl (6.3-8.2); eGFR > 60.00
--- NOTE | 2025-04-20 16:27 | ED.CVA ---
History of Present Illness
General
Chief Complaint: CVA/TIA Symptoms
Time Seen by Provider: 04/20/25 16:26
Onset of Stroke Symptoms
Onset of symptoms known: Yes
Date of onset of symptoms: 04/20/25
Time of onset of symptoms: 13:00
History of Present Illness
History of Present Illness:
FOCUSED PAST MEDICAL HISTORY
- TIAs, has had subdural hematoma, CHF, CAD, thyroid disease
REVIEW OF OLD RECORDS
�03/23/2025: was found to have new bilateral subdural hematomas with suggestion of acute right subdural hematoma�transferred to [place] at that time
�04/02: found to have a thrombosis of the right lower extremity superficial thrombosis and was placed on heparin and transition to Eliquis
- 04/17/2025: The patient was seen in the Emergency Department at [place] after the patient had an episode of 'could not get my words out'; had CTA head and neck in which the carotids showed only mild disease
Note:
CHIEF COMPLAINT(S)
Right-sided upper extremity weakness and transient speech difficulty.
HISTORY OF PRESENT ILLNESS
The patient is a 74-year-old male with a history of brain hemorrhage secondary to a fall, who presented with acute weakness of the right hand and transient aphasia. The patient reported that shortly after his spouse left for a brief errand, he was
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 This episode lasted less than a minute. When attempting to use the bathroom shortly thereafter, the patient experienced difficulty in speaking for less than a minute before symptoms resolved. The onset of
symptoms was approximately at 2:30 PM, and the patient has since returned to his baseline status.
It is notable that the patient had a prior brain hemorrhage in March 2025, with left upper extremity weakness at that time. He was switched from Warfarin to Apixaban due to 'phlebitis' and current anticoagulation management following recent
phlebitis.
The patients spouse notes ongoing redness of the legs but describes this as typical and unchanged from previous states, likely due to periods of limited mobility.
The patient does not report a high fever or worsening physical condition that might indicate infection. Current medication includes Apixaban 5 mg without concurrent aspirin usage.
As a side note, he was recently called stating that he had Pseudomonas and was placed on Cipro orally�first dose was not yet given and I did give the patient's water for him to take his first dose of the Cipro now.
PAST MEDICAL AND SURGICAL HISTORY
The patient has a history notable for a brain hemorrhage following a fall in March 2023, anticoagulation management challenges, and prior stroke secondary to Warfarin reintroduction post-trauma.
CHRONIC MEDICAL CONDITIONS SIGNIFICANTLY AFFECTING CARE
History of stroke
History of brain hemorrhage
PHYSICAL EXAM
General: Alert, no acute distress. The patient appears somewhat chronically weak and debilitated.
Skin: Warm, dry.
Head: Normocephalic, atraumatic.
Neck: Supple, trachea midline.
Eye, Ears, Nose, Mouth, and Throat: Oral mucosa moist.
Cardiovascular: Normal peripheral perfusion, no edema. Regular rhythm
Respiratory: Respirations are non-labored.
Gastrointestinal: Abdomen nondistended.
Back: Normal range of motion, normal alignment.
Musculoskeletal: Lower extremity erythema and edema which states is chronic
Neurological: Alert and oriented to person, place, time, and situation. No focal neurological deficit observed. Neurological examination after the episode revealed strength and coordination without notable deficits. NIH stroke scale equals 0
Psychiatric: Cooperative, appropriate mood and affect.
PLAN
A CT scan will be performed to assess for any new intracranial bleeding, given the history of brain hemorrhage.
DIFFERENTIAL DIAGNOSIS
The Differential Diagnosis includes, in no particular order and is not limited to:
1. Transient Ischemic Attack (TIA)
2. Stroke (Ischemic or Hemorrhagic)
3. Migraine with aura
4. Seizure
5. Hypoglycemia
6. Epilepsy
7. Intracranial hemorrhage
8. Infection (considered less likely without fever or systemic signs)
9. Medication-related side effects
10. Functional neurological disorder
RADIOLOGY
- CT head personally reviewed and again suggest chronic bilateral subdurals
EKG
- V paced 81
LABS
- CBC and chemistries unremarkable
UPDATE
SUMMARY OF ENCOUNTER
The patient is a 74-year-old male with a history of brain hemorrhage and prior stroke, who presented with acute right-sided upper extremity weakness and transient speech difficulty. These symptoms prompted the evaluation due to concerns of potential
transient ischemic attack (TIA) versus recurrent brain hemorrhage. The patients prior imaging revealed subdural hematomas, which appeared mostly chronic with some small acute changes on the right side of the brain affecting the left side. A review
of current imaging suggests that the hematomas may be shrinking. The patients treatment includes anticoagulation with apixaban (Eliquis) due to atrial fibrillation. The patient is under the care of several specialists, including neurology and
neurosurgery. Given the patients complex history and the current presentation, neurology was consulted to determine appropriate management plans.
DISPOSITION
Discharge.
ASSESSMENT
The likely assessment is a transient ischemic attack (TIA) influenced by either an ischemic event or pressure from existing subdural hematomas. Considerations of other neurological factors, such as the history of stroke and anticoagulation
treatment, were discussed.
PLAN
The current plan includes continued monitoring of the subdural hematomas and anticoagulation with apixaban. The patient is advised to follow-up with his neurosurgeon, Dr. Jose Vernon, for ongoing evaluation of the hematomas and management of
potential procedures such as MMA (middle meningeal artery embolization), though there are no immediate indications for surgical intervention. Regular follow-ups with cardiology and neurology are advised to monitor anticoagulation therapy and address
the possibility of introducing aspirin if safe and advised under careful specialist guidance.
INDEPENDENT REVIEW OF LABS AND INTERPRETATION OF TESTS
My independent interpretation of the CT scan suggests decreasing size in the subdural hematomas with no new acute hemorrhage.
MANAGEMENT OF THE PATIENTS CARE WAS DISCUSSED WITH
The patients previous care discussions were reviewed, including prior consultations with neurosurgeon Dr. Jose Vernon and neurologist Dr. Bautista. Current management options were discussed with a neurologist, and the plan was communicated to the
patient.
FOLLOW-UP INSTRUCTIONS
The patient is to follow up with the neurosurgeon, Dr. Jose Vernon, and the blanket cutter hand and sensory scientist in two weeks to discuss ongoing management with a particular focus on the potential role of a Watchman procedure. The patient will also
attempt to consult neurology, potentially with Dr. Garcia in [place], or through [facility] in [place], for further follow-up as per recommendation.
MEDICATION RECONCILIATION
- Current medication includes apixaban (Eliquis), for anticoagulation management.
MEDICAL DECISION MAKING
- Number and Complexity of Problems Addressed: Chronic conditions affecting care include a history of stroke, brain hemorrhage, and current management for anticoagulation due to atrial fibrillation. Differential diagnosis includes transient ischemic
attack (TIA), stroke (ischemic or hemorrhagic), migraine with aura, seizure, hypoglycemia, epilepsy, intracranial hemorrhage, infection, medication-related side effects, and functional neurological disorder.
- Data:
Category 1: Current imaging was reviewed, which shows shrinking subdural hematomas without any new acute changes.
Category 3: Management was discussed with a neurologist and neurosurgeon, emphasizing the potential need for an MMA procedure, but no immediate surgery is indicated.
-Risk: Consideration of Admission/Observation: Escalation of care, including admission/observation, was considered given the complexity and risk of the patients presenting complaint, exam findings, and their underlying comorbidities. However,
ultimately I feel the patient is safe for outpatient management with close follow-up. Reasoning: Work-up reassuring, does not reveal any acute life/organ-threatening processes, patients symptoms well controlled upon reevaluation, reexamination is
reassuring, vitals are stable, patient agreeable with discharge, reliable for follow-up.
DIAGNOSIS
- Transient Ischemic Attack (TIA) - ICD-10: G45.9
- Chronic subdural hematoma
-I discussed case with on-call neurology, Dr. Lanza, I reviewed the recent echo report and there is no evidence for PFO at that time from [address] Alexander also recommended neurosurgical evaluation. I spoke to Dr. Bautista and the patient's
also tells me that they did have a evaluation with a neurointerventional list at [place] and the patient ultimately declined the middle meningeal artery embolization for the chronic subdural hematomas.
Past History
Past History
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 ),
CHF, CVA (Expressive aphasia), GERD, HTN, Hypothyroidism, Other ( Petty's esophagus , back and neck pain chronic, DVT, renal calculus, ), Other (Vasovagal syncope, DVT, osteoarthritis with chronic pain syndrome/narcotic dependent, BPH) and Other
(Patient Denies gastric erosion and GI bleeding)
ED Past Surgical History: Cardiac (AV sequential pacemaker after ablation for atrial fibrillation ), Orthopedic and Other (Cataracts, Deviated septum, )
Social History
Tobacco: Non-smoker
Alcohol: None
Drug: None
Personal:
Living: with family
Employment: Retired
Family History
Family History: CAD; Negative Diabetes
Phy Exam
Physical Exam
Physical Exam:
See HPI
Course
Orders/Labs/Results
Orders:
Orders
04/20/25 15:16
Electrocardiogram (*1) Urgent
Reason for Study: Other
Other Reason for Exam: Possible Stroke
Cardiac Monitoring- Treatment ONCE
IV Insert/Care/Rem.- Treatment PRN
Vital Signs As Directed
Frequency: Other
Weight As Directed
Frequency: Once
Comment: ZERO STRETCHER SCALE FOR ACCURATE WEIGHT
04/20/25 15:17
EKG- Treatment ONCE
04/20/25 15:29
Complete Blood Count/With Diff Urgent
Comprehensive Metabolic Panel Urgent
04/20/25 16:30
CT Head W/o Iv Contrast Urgent
Comment:
Reason For Exam: alt ms
Abnormal Lab Results
04/20/25
15:29
RBC 4.47 L 10^6/uL
(4.70-6.10)
MCV 96.2 H fL
(80.0-94.0)
MCHC 32.1 L g/dL
(33.0-37.0)
Absolute Monos (auto) 0.7 H 10^3/uL
(0.1-0.6)
Lymphocytes % 15.8 L %
(20.5-51.1)
Carbon Dioxide 35 H mmol/L
(22-30)
Glucose 109 H mg/dl
(70-99)
Total Bilirubin 1.5 H mg/dl
(0.2-1.3)
04/20/25 15:29
04/20/25 15:29
Vital Signs
Initial and Last Documented VS:
Initial Vital Signs
Pulse Resp BP
85 24 130/81
04/20/25 15:16 04/20/25 15:16 04/20/25 15:16
Last Documented Vital Signs
Temp Pulse Resp BP Pulse Ox
36.6 C 80 16 133/96 97
04/20/25 15:19 04/20/25 18:45 04/20/25 18:45 04/20/25 18:28 04/20/25 18:45
*Pulse Oximetry
SaO2: 97
Oxygen Mode of Delivery: Room air
Patient hypoxic: no
*Critical Care Note
Total Time (30-74mins, 75-104mins- exclusive of procedures): Not Applicable
ED Attending Note
-
Portions of this chart may have been created with voice recognition software.� Occasional wrong word or��sound alike� substitutions may have occurred due to the inherent limitations of voice recognition software.
Discharge Plan
Departure
Prescriptions:
No Action
furosemide 20 mg Tablet
20 mg PO Q48H
cholecalciferol (vitamin D3) [Vitamin D3] 25 mcg (1,000 unit) Capsule
25 mcg PO DAILY
metoprolol succinate 50 mg Tablet Extended Release 24 Hr
50 mg PO BID
fluticasone propionate 1 SPRAY spray,suspension
1 spray intranasal DAILYPRN PRN (Reason: allergies)
morphine 15 mg Tablet Extended Release
30 mg PO Q12H
oxycodone 10 mg Tablet
20 mg PO BID@0530,1730
docusate sodium [Colace] 100 mg Capsule
300 mg PO DAILY@1200
Eliquis 5 mg Tablet
5 mg PO BID Qty: 60 11RF
(DME) BMP
See Rx Instructions .Route .MEDSUPPLY Qty: 1 0RF
Rx Instructions:
BMP in 1 week
Dx : Hyperkalemia
Forward result to primary care physician
cephalexin 500 mg capsule
500 mg PO QID 7 Days Qty: 28 0RF
ciprofloxacin HCl 500 mg tablet
500 mg PO BID Qty: 14 0RF
levothyroxine 150 MCG tablet
150 mcg PO DAILY@0700 Qty: 30 0RF
cyanocobalamin (vitamin B-12) 1,000 MCG tablet
1,000 mcg PO DAILY Qty: 30 0RF
Referrals:
Edis Mays MD [Family Provider, Cardiology]
Interventions
Interventions:
*Risk Screen - Suicide Last Done: 04/20/25 15:19
*General Assessment Last Done: 04/20/25 15:19
*Neglect/Abuse Screening Last Done: 04/20/25 15:19
*ED- Fall Risk Assessment Last Done: 04/20/25 15:19
*ED COVID-19 Vaccine History Last Done: 04/20/25 15:19
*ED Influenza Vaccine History Last Done: 04/20/25 15:19
ED- Pulmonary Assessment Last Done: 04/20/25 15:19
ED- Neurological Assessment Last Done: 04/20/25 15:19
ED- Cardiac Assessment Last Done: 04/20/25 15:19
Discharge Date and Time
Print Language: SYRIAC
== END 2025-04-20 20:40 | disposition home or self-care (01) ==
LOC: EMR 15:12
PROVIDERS: EMERGENCY PHYSICIAN Emergency Medicine; FAMILY PHYSICIAN Internal Medicine Cardiovascular Disease
DX: G45.9 Transient cerebral ischemic attack, unspecified (principal); S06.5XAA Traumatic subdural hemorrhage with loss of consciousness status unknown, initial encounter; W19.XXXA Unspecified fall, initial encounter; E03.9 Hypothyroidism, unspecified; I48.91 Unspecified atrial fibrillation; I25.10 Atherosclerotic heart disease of native coronary artery without angina pectoris; I11.0 Hypertensive heart disease with heart failure; I50.9 Heart failure, unspecified; Z86.73 Personal history of transient ischemic attack (TIA), and cerebral infarction without residual deficits; Z86.718 Personal history of other venous thrombosis and embolism; Z79.01 Long term (current) use of anticoagulants; Z95.0 Presence of cardiac pacemaker
CPT/HCPCS: 99284; 70450; 80053; 85025; 93005

== ENCOUNTER → 2025-05-23 09:07 | Outpatient (REF) | payer MEDICARE, SELFPAY | LOC: RAD 09:07 | PROVIDERS: ATTENDING PHYSICIAN Nurse Practitioner; FAMILY PHYSICIAN Family Medicine | DX: I48.0 Paroxysmal atrial fibrillation (principal); I10 Essential (primary) hypertension; I63.9 Cerebral infarction, unspecified | CPT/HCPCS: 75572; Q9967 ==